=== PATIENT | female | born 1965 | race Caucasian/White ===

== ENCOUNTER 2020-10-24 12:05 | Outpatient (REF) | payer OTHER, SELFPAY ==
[2020-10-26 18:57] LABS: TS Negative Control Passed; TS Panel A 0; TS Panel B 0; TS Positive Control Passed; TSpotTB Negative (SeeBelow)
[2021-01-14 11:49] LABS: HCV Log PCR <1.18 NOT DETECTED; HepC Viral Load <15 NOT DETECTED
== END 2020-10-24 12:06 | disposition home or self-care (01) ==
LOC: HO.LAB 12:05
PROVIDERS: PCP Physician Assistant; Visit Provider Student in an Organized Health Care Education/Training Program
DX: M05.9 Rheumatoid arthritis with rheumatoid factor, unspecified (principal)
CPT/HCPCS: 36415; 86481; 87522

== ENCOUNTER → 2020-11-24 10:11 | Outpatient (BNVA) | payer OTHER, SELFPAY | PROVIDERS: PCP Physician Assistant; Visit Provider Internal Medicine Gastroenterology | DX: Z76.89 Persons encountering health services in other specified circumstances (principal) ==

== ENCOUNTER 2020-12-09 11:11 | Emergency (ER) | payer OTHER, SELFPAY ==
--- NOTE | 2020-12-09 | ECG_ITS ---
Test Reason : DIZZINESS Blood Pressure : / mmHG Vent. Rate : 044 BPM Atrial Rate : 044 BPM P-R Int : 132 ms QRS Dur : 090 ms QT Int : 486 ms P-R-T Axes : 082 -05 047 degrees QTc Int : 415 ms Marked sinus bradycardia Septal infarct , age undetermined Abnormal ECG When compared with ECG of 18-MAR-2013 00:34, No significant change was found Referred By: Generic ED Physician Electronically Signed By:Neel Perez
[2020-12-09 11:19] VITALS: BP 145/64; PULSE 42; RESP 20; TEMP 36.4; O2SAT 99; BMI 22.1
--- NOTE | 2020-12-09 12:30 | XR_ITS ---
EXAMINATION: XR CHEST CLINICAL INFORMATION: Weakness, dizziness, headaches. COMPARISON: None TECHNIQUE: 2 views of the chest were obtained. FINDINGS: No significant abnormality is noted involving the heart, lungs, mediastinum, bony thorax or soft tissues. XR/XR chest 2V IMPRESSION: No acute cardiopulmonary process.
--- NOTE | 2020-12-09 12:30 | CT_ITS ---
EXAMINATION: CT HEAD WITHOUT CONTRAST CLINICAL INFORMATION: Generalized weakness, dizziness, headache and bodyaches COMPARISON: None TECHNIQUE: Contiguous axial imaging was performed from the skull base to vertex without intravenous administration of contrast. This CT examination was performed using dose optimization techniques as appropriate, variously including the following: *Automated exposure control *Adjustment of mA and/or kV according to patient size (this includes techniques or standardized protocols for targeted exams where dose is matched to indication/reason for exam; i.e. extremities or head) *Use of iterative reconstruction technique DLP: 631 mGy-cm FINDINGS: There is no evidence of acute intracranial hemorrhage or territorial infarction. No abnormal mass effect or midline shift is seen. Mancuso to white matter differentiation is well preserved. No extra-axial fluid collections are identified. The ventricles are normal in size. There is no abnormal attenuation within the brain parenchyma. The osseous structures and soft tissues are normal. There are 2 small polyps or cysts in the left side of the sphenoid sinus. The mastoid air cells and visualized portions of the paranasal sinuses are otherwise clear. CT/CT head/brain wo con IMPRESSION: No acute findings. Small polyps or cysts in the left side of the sphenoid sinus.
--- NOTE | 2020-12-09 12:31 | CT_ITS ---
EXAMINATION: CT ABDOMEN AND PELVIS WITH CONTRAST CLINICAL INFORMATION: Nausea, vomiting and diarrhea and generalized abdominal pain COMPARISON: Previous CT of the abdomen and pelvis December 2012 TECHNIQUE: Multidetector volumetric images were obtained from the superior aspect of the liver through the pubic symphysis following administration 85 mL of Omnipaque 350 intravenous contrast. Sagittal and coronal reformatted images were obtained on the technologist's workstation. Oral contrast: Yes This CT examination was performed using dose optimization techniques as appropriate, variously including the following: *Automated exposure control *Adjustment of mA and/or kV according to patient size (this includes techniques or standardized protocols for targeted exams where dose is matched to indication/reason for exam; i.e. extremities or head) *Use of iterative reconstruction technique DLP: 377 mGy-cm FINDINGS: LUNG BASES: The visualized lung bases are unremarkable. LIVER, GALLBLADDER, AND BILIARY TREE: There are small calcifications seen in the liver that are stable. The gallbladder has been removed. There is mild intra and extrahepatic biliary duct dilatation. This is similar to 2013 exam. PANCREAS: Unremarkable. SPLEEN: Unremarkable. ADRENAL GLANDS: Unremarkable. KIDNEYS AND URETERS: The kidneys are normal in size, shape, and attenuation. No hydronephrosis, hydroureter, or calculi seen. No perinephric stranding. BLADDER: Unremarkable. GASTROINTESTINAL TRACT: There are postoperative changes from gastric bypass. There is fluid seen in the bypassed portion of the stomach. The small and large bowel are otherwise unremarkable. The appendix is unremarkable. ABDOMINAL WALL: No significant hernia is appreciated. LYMPH NODES: Normal. VASCULAR: Unremarkable. PELVIC VISCERA: The uterus appears to have been removed. No pelvic mass is seen. OSSEOUS STRUCTURES: There is mild anterior subluxation of L4 with respect L5. There are mild degenerative changes of the spine. CT/CT abdomen pelvis w con IMPRESSION: Postoperative change from gastric bypass. There is fluid in the bypassed portion of the stomach. Mild intrahepatic extrahepatic biliary duct dilatation post cholecystectomy. This is stable from 2013 exam.
[2020-12-09] MEDS: 0.9 % Sodium Chloride 1,000 ML 999 ML IVCONT ×2 (13:08→17:08)
[2020-12-09 13:23] LABS: MANUAL DIFF FLAG NO
[2020-12-09 13:24] LABS: Basophils Percent Auto 0.7 % (0-2); Eosinophils Absolute Auto 0.4 X10*3/uL (0.0-0.4); Eosinophils Percent Auto 6.6 % (0-4); Hematocrit 36.7 % (37-47); Hemoglobin 12.3 g/dl (12.0-16.0); Imm Gran Abs Auto 0.02 X10*3/uL (0.00-0.03); Imm Gran Pct Auto 0.3 % (0.0-0.4); Lymphocytes Absolute Auto 1.1 X10*3/uL (1.2-4.9); Lymphocytes Percent Auto 19.3 % (20-40); Mean Corpuscular HGB Conc 33.5 g/dl (31.0-35.0); Mean Corpuscular Hemoglobin 29.6 pg (27.0-33.0); Mean Corpuscular Volume 88.2 fL (80-98); Mean Platelet Volume 12.8 fL (9.4-12.3); Monocytes Absolute Auto 0.6 X10*3/uL (0.1-1.2); Monocytes Percent Auto 10.1 % (2-11); Neutrophils Absolute Auto 3.6 X10*3/uL (2.0-8.3); Platelet Count 123 X10*3/uL (160-400); Red Blood Count 4.16 X10*6/uL (4.20-5.50); Red Cell Distribution Width 16.3 % (11.0-16.0); White Blood Count 5.7 X10*3/uL (4.8-10.8)
[2020-12-09 13:35] LABS: INTERNATIONAL NORM RATIO 1.1 (0.9-1.1); Prothrombin Time 12.9 SEC (10.8-13.0)
[2020-12-09 13:38] LABS: Partial Thromboplastin Time 35.8 SEC (24.1-38.0)
[2020-12-09 13:56] LABS: Troponin-I High Sensitivity < 3.5 ng/L (<3.5-17.0)
[2020-12-09 13:58] LABS: Influenza A PCR NEGATIVE (Negative); Influenza B PCR NEGATIVE (Negative); Resp Syncy Virus RNA Qual PCR NEGATIVE (Negative); SARS COV2 PCR INHOUSE NEGATIVE (Negative)
[2020-12-09 14:19] VITALS: BP 155/54; PULSE 43; RESP 14; TEMP 36.6; O2SAT 99
--- NOTE | 2020-12-09 14:29 | ED.GENADULT ---
HPI - General Adult General Chief complaint: Dizziness Stated complaint: dizzy Time Seen by Provider: 12/09/20 12:19 Source: patient Mode of arrival: ambulatory Limitations: no limitations History of Present Illness HPI narrative: 55yoF c PMHx of Anemia of chronic blood loss, Lupus, seropositive rheumatoid arthritis taking Plaquenil, LISSA positive, limited scleroderma (CREST syndrome), Raynaud's syndrome, bipolar disorder, OCD and past surgical history of a gastric bypass presenting to the ED c c/o dizziness for the past few months, headache to the left temporal aspect of her head for over week that started gradually worse today with associated generalized weakness, body, N/V, generalized abdominal pain and feeling shortness of breath. Denies any recent travel or sick contacts. Denies head injury, recent tick bite, CO2 exposure, recent spinal/epidural procedure, changes in vision, jaw pain, chest pain, cough, back pain, extremity edema, focal weakness, dysuria, diarrhea or constipation or any other symptoms complaints or concerns at this time. Related Data Home Medications Medication Instructions Recorded Confirmed duloxetine 1 cap PO DAILY 10/28/20 11/24/20 fluticasone propion-salmeterol 1 inh INHALATION BID 10/28/20 11/24/20 [Wixela Inhub] tramadol 1 tab PO DAILY PRN 10/28/20 11/24/20 Previous Rx's Medication Instructions Recorded trimethobenzamide 300 mg capsule 300 mg PO Q6H PRN #7 cap 10/27/20 tofacitinib 11 mg tablet,extended 11 mg PO DAILY #30 tab 11/18/20 release 24 hr peg-electrolyte solution 420 gram 240 ml PO Q10M #4000 ml 11/24/20 oral solution bisacodyl 5 mg tablet,delayed 10 mg PO ONCE 1 Days #2 tab 11/27/20 release polyethylene glycol 3350 17 238 g PO ONCE 1 Days #238 g 11/27/20 gram/dose oral powder hydroxychloroquine 200 mg tablet 300 mg PO DAILY #45 tab 12/04/20 izkezbddrr-dmkuernucfmfx-zbvm 1 cap PO Q8H PRN #10 cap 12/09/20 [Fioricet] diphenhydramine HCl [Benadryl] 25 mg PO Q6H PRN #10 cap 12/09/20 metoclopramide HCl [Reglan] 5 mg PO DAILY #10 tab 12/09/20 Allergies Allergy/AdvReac Type Severity Reaction Status Date / Time ciprofloxacin [From CIPRO] Allergy Intermediate RASH Verified 11/24/20 10:12 Review of Systems Review of Systems: Constitutional : + Fatigue, + Malaise, No Fever, No Chills, No Night Sweats, No recent prior head injury ENT/Mouth : No Ear Pain, No Nasal Congestion, No Sinus Pain, No sore throat, No Rhinorrhea Eyes: No Eye Pain, No Swelling, No Redness, No Foreign Body, No Discharge, No Vision Changes Cardiovascular : + SOB, No Chest Pain, No Dyspnea on Exertion, No Orthopnea, No Palpitations Respiratory : No Cough, No Sputum, No Wheezing, No Dyspnea Gastrointestinal : + Nausea, + Vomiting, + Abdominal pain, No Diarrhea, No Constipation, No Hematochezia, No Melena Genitourinary : No Dysuria, No Urinary Frequency, No Urinary Incontinence, No Urgency, No Flank Pain Musculoskeletal : + joint pain, + Myalgias Skin : No lacerations Neuro : + Headache, + dizziness, No Numbness, No Paresthesias, No Loss of Consciousness, no altered mental status, Denies past medical history of HIV, recent trauma, coagulopathy, recent spinal/ epidural procedure, new medication, URI symptoms, close contacts with similar symptoms, tick bite, or known CO2 exposure. Yes all other systems are reviewed and are negative PMFSH Past Medical History Attestation statement: The following information was validated with the patient. Medical History LISSA positive History of dyspnea History of OCD (obsessive compulsive disorder) Hx of bipolar disorder Hx of Raynaud's syndrome Limited scleroderma Lupus Seropositive rheumatoid arthritis Surgical History Hx of endoscopy Hx of gastric bypass S/P debridement Family History Family History Father Hx of cardiac pacemaker Mother History of heart attack Social History Social History Alcohol intake: never Smoking Status: Light tobacco smoker Tobacco Type: Cigarette Cigarettes Per Day: 1 Use of substances other than those prescribed or required for medical reasons: No Advance Directives: No Advance Directives Information Provided: No Physical Exam Vital Signs: Vital Signs: Last Vital Signs Temp 97.9 F 12/09/20 14:19 Pulse 49 L 12/09/20 17:00 Resp 12 12/09/20 16:11 BP 120/66 12/09/20 17:00 Pulse Ox 100 12/09/20 16:11 Body Mass Index 22.1 Vital signs have been reviewed as normal and appeared to be correct. Blood pressure hypertensive. Heart rate bradycardic. Respiration rate normal. Temperature normal. Oxygen saturation normal. Appearance: Alert. Oriented X3. No acute distress. Head: Tenderness to palpation to left side of head/temporal aspect. No right-sided head tenderness. Otherwise Normal external exam. Normocephalic. Atraumatic. Able to rotate head bilaterally. Eyes: PERRLA. EOMI. No nystagmus noted. Conjunctiva and sclera normal. Eyelids normal. Corneal reflex normal. ENT: EAC normal. TM's Normal. Hearing normal. Pharynx normal. Uvula midline. tongue midline. Moist mucous membranes. No trismus noted. No drooling noted. No muffled voice noted. Neck: Normal inspection. Neck supple. FROM. No adenopathy. Thyroid Normal. No meningeal signs. No neck mass noted. CVS: Normal heart rate and rhythm. Heart sound normal. No murmurs noted. Pulses normal throughout. Respiratory: No respiratory distress. Painless inspiration. Breath sounds normal. No wheezes/rales/rhonchi noted. Chest nontender. No accessory muscle usage noted or decreased air movement noted. Abdomen: Soft and generalized tenderness throughout. Bowel sounds normal in all 4 quadrants. No distention noted. No organomegaly noted. No visible injury noted. Back: No CVA tenderness. Full range of motion noted. Skin: Skin warm and dry. Normal skin color. Normal skin turgor. No rashes/lesions/lacerations noted. Extremities: No lower extremity edema. No calf tenderness noted. Extremities exhibit normal range of motion. Extremities nontender. Able to shrug shoulders bilaterally and keep up against resistance. Neuro: Oriented X 3. No motor deficit. No sensory deficit. Reflexes normal. Moving all extremities. No focal motor deficits. Cranial nerves II-XI intact bilaterally. Facial strength normal. Normal cognition. Speech normal. Gait normal. Strength 5/5 throughout. No pronator drift. No tremor noted. No fasciculations noted. Muscle tone normal throughout. No asterixis noted. Banbfc-va-ndvm test normal. Heel to fishman test normal. No rigidity noted. NIHSS score 0. Course Course Course Narrative: 12:30PM - 55yoF c PMHx of Anemia of chronic blood loss, Lupus, sero positive rheumatoid arthritis taking Plaquenil, LISSA positive, limited scleroderma (CREST syndrome), Raynaud's syndrome, bipolar disorder, OCD and past surgical history of a gastric bypass presenting to the ED c c/o dizziness for the past few months, headache to the left temporal aspect of her head for over week that started gradually worse today with associated generalized weakness, body, N/V, generalized abdominal pain and feeling shortness of breath. - on exam patient is alert and oriented x3. Patient is noted to be tender on the left side of her head diffusely nonspecifically over the temporal artery. She is noted to be tender all over her body her abdomen and anywhere palpate. No focal neuro deficits noted. Patient has a normal steady gait. Generalized tenderness to palpation of the abdomen. - Plan: Labs, CXR, EKG, CT scan of brain, Ct scan of chest andf CT scan of abd/pelvis c IV contrast. Provide a L of IV fluids, 50 mg of IV Benadryl, 10 mg of Reglan and 2 Fioricet and re-evaluate. Reevaluation(s) Reevaluation #1: - All labs WNL. CXR WNL. EKG sinus bradycardia otherwise no acute ischemic changes noted and similar compared to prior EKG. - awaiting CT scan of brain/chest and abdomen pelvis to re-evaluate. Time: 15:29 Reevaluation #2: - CT scan of brain reveals small polyps or cyst in the left side of the sphenoid sinus. otherwise no other acute processes noted. - CTA of chest for PE negative for PE or any other acute processes. - CT scan of abd/pelvis c IV contrast revealed Postoperative changes from gastric bypass. There is fluid and the bypass portion of the stomach. Mild intrahepatic extrahepatic biliary duct dilatation post cholecystectomy. This is stable from 2013 exam. - Therefore I consulted with the patient's GI surgeon and I spoke to 1 of his on-call associates and they reported that occasionally the bypass portion of the stomach will still secretive fluid that as long as there is no fistula on CT scan and patient is not having moderate GI symptoms that finding is of no clinical significance at this time. - UA Within normal limits no evidence of UTI/UhCG negative for . - Orthostatic vitals negative although patient reports dizziness with laying down/sitting and standing up. Therefore will give another L of IV fluids and plan to discharge. Patient understands agrees the plan. Time: 16:37 Medical Decision Making Medical Records Medical records reviewed: Yes I reviewed the patient's medical records. Lab Data Lab results reviewed: Yes I reviewed the patient's lab results. Result diagrams: 12/09/20 13:04 12/09/20 14:33 Labs: Lab Results 12/09/20 12/09/20 12/09/20 Range/Units 13:04 13:04 13:04 WBC 5.7 (4.8-10.8) X10*3/uL RBC 4.16 L (4.20-5.50) X10*6/uL Hgb 12.3 (12.0-16.0) g/dl Hct 36.7 L (37-47) % MCV 88.2 (80-98) fL MCH 29.6 (27.0-33.0) pg MCHC 33.5 (31.0-35.0) g/dl RDW 16.3 H (11.0-16.0) % Plt Count 123 L (160-400) X10*3/uL MPV 12.8 H (9.4-12.3) fL Immature Gran % (Auto) 0.3 (0.0-0.4) % Neut % (Auto) 63.0 (45-73) % Lymph % (Auto) 19.3 L (20-40) % [place] % (Auto) 10.1 (2-11) % Eos % (Auto) 6.6 H (0-4) % Baso % (Auto) 0.7 (0-2) % Lymph # (Auto) 1.1 L (1.2-4.9) X10*3/uL [place] # (Auto) 0.6 (0.1-1.2) X10*3/uL Eos # (Auto) 0.4 (0.0-0.4) X10*3/uL Baso # (Auto) 0.0 (0.0-0.2) X10*3/uL Abs Immat Gran (auto) 0.02 (0.00-0.03) X10*3/uL Absolute Neuts (auto) 3.6 (2.0-8.3) X10*3/uL Absolute Nucleated RBC 0.000 (0.0-0.012) X10*3/uL Nucleated RBC % (auto) 0.0 (0.0-0.2) /100WBC ESR 16 (0-20) MM/HR PT 12.9 (10.8-13.0) SEC INR 1.1 (0.9-1.1) APTT 35.8 (24.1-38.0) SEC Sodium (135-145) mmol/L Potassium (3.3-5.1) mmol/l Chloride (96-108) mmol/L Carbon Dioxide (22-29) mmol/L Anion Gap (12-20) BUN (9-16) mg/dL Creatinine (0.5-1.4) mg/dL Estim Creat Clear Calc Estimated GFR Random Glucose (60-115) mg/dL Calcium (8.4-10.2) mg/dL Magnesium (1.6-2.6) mg/dL Total Bilirubin (0.0-1.0) mg/dL Direct Bilirubin (0.0-0.5) mg/dL AST (5-31) U/L ALT (0-31) U/L Alkaline Phosphatase (39-117) U/L Troponin I High Sens (<3.5-17.0) ng/L C-Reactive Protein (< or = 0.50) mg/dL Total Protein (6.5-8.0) g/dL Albumin (3.5-5.0) g/dL Urine Color Urine Appearance Urine pH (5.0-8.0) Ur Specific [place] (1.005-1.025) Urine Protein (NEG-TRACE) MG/DL Urine Glucose (UA) (NEG) MG/DL Urine Ketones (NEG) MG/DL Urine Blood (NEG) Urine Nitrite (NEG) Ur Leukocyte Esterase (NEG) Urine Test (NEGATIVE) Coronavirus (PCR) (Negative) Influenza Type A (PCR) (Negative) Influenza Type B (PCR) (Negative) RSV RNA Qual (PCR) (Negative) 12/09/20 12/09/20 12/09/20 Range/Units 13:04 13:04 14:33 WBC (4.8-10.8) X10*3/uL RBC (4.20-5.50) X10*6/uL Hgb (12.0-16.0) g/dl Hct (37-47) % MCV (80-98) fL MCH (27.0-33.0) pg MCHC (31.0-35.0) g/dl RDW (11.0-16.0) % Plt Count (160-400) X10*3/uL MPV (9.4-12.3) fL Immature Gran % (Auto) (0.0-0.4) % Neut % (Auto) (45-73) % Lymph % (Auto) (20-40) % [place] % (Auto) (2-11) % Eos % (Auto) (0-4) % Baso % (Auto) (0-2) % Lymph # (Auto) (1.2-4.9) X10*3/uL [place] # (Auto) (0.1-1.2) X10*3/uL Eos # (Auto) (0.0-0.4) X10*3/uL Baso # (Auto) (0.0-0.2) X10*3/uL Abs Immat Gran (auto) (0.00-0.03) X10*3/uL Absolute Neuts (auto) (2.0-8.3) X10*3/uL Absolute Nucleated RBC (0.0-0.012) X10*3/uL Nucleated RBC % (auto) (0.0-0.2) /100WBC ESR (0-20) MM/HR PT (10.8-13.0) SEC INR (0.9-1.1) APTT (24.1-38.0) SEC Sodium 142 (135-145) mmol/L Potassium 3.9 (3.3-5.1) mmol/l Chloride 110 H (96-108) mmol/L Carbon Dioxide 25 (22-29) mmol/L Anion Gap 11 L (12-20) BUN 8 L (9-16) mg/dL Creatinine 0.58 (0.5-1.4) mg/dL Estim Creat Clear Calc 92.7 Estimated GFR > 60 Random Glucose 82 (60-115) mg/dL Calcium 8.5 (8.4-10.2) mg/dL Magnesium 1.7 (1.6-2.6) mg/dL Total Bilirubin 0.3 (0.0-1.0) mg/dL Direct Bilirubin 0.2 (0.0-0.5) mg/dL AST 25 (5-31) U/L ALT 14 (0-31) U/L Alkaline Phosphatase 64 (39-117) U/L Troponin I High Sens < 3.5 (<3.5-17.0) ng/L C-Reactive Protein 0.03 (< or = 0.50) mg/dL Total Protein 6.5 (6.5-8.0) g/dL Albumin 3.8 (3.5-5.0) g/dL Urine Color Urine Appearance Urine pH (5.0-8.0) Ur Specific [place] (1.005-1.025) Urine Protein (NEG-TRACE) MG/DL Urine Glucose (UA) (NEG) MG/DL Urine Ketones (NEG) MG/DL Urine Blood (NEG) Urine Nitrite (NEG) Ur Leukocyte Esterase (NEG) Urine Test (NEGATIVE) Coronavirus (PCR) NEGATIVE (Negative) Influenza Type A (PCR) NEGATIVE (Negative) Influenza Type B (PCR) NEGATIVE (Negative) RSV RNA Qual (PCR) NEGATIVE (Negative) 12/09/20 Range/Units 16:33 WBC (4.8-10.8) X10*3/uL RBC (4.20-5.50) X10*6/uL Hgb (12.0-16.0) g/dl Hct (37-47) % MCV (80-98) fL MCH (27.0-33.0) pg MCHC (31.0-35.0) g/dl RDW (11.0-16.0) % Plt Count (160-400) X10*3/uL MPV (9.4-12.3) fL Immature Gran % (Auto) (0.0-0.4) % Neut % (Auto) (45-73) % Lymph % (Auto) (20-40) % [place] % (Auto) (2-11) % Eos % (Auto) (0-4) % Baso % (Auto) (0-2) % Lymph # (Auto) (1.2-4.9) X10*3/uL [place] # (Auto) (0.1-1.2) X10*3/uL Eos # (Auto) (0.0-0.4) X10*3/uL Baso # (Auto) (0.0-0.2) X10*3/uL Abs Immat Gran (auto) (0.00-0.03) X10*3/uL Absolute Neuts (auto) (2.0-8.3) X10*3/uL Absolute Nucleated RBC (0.0-0.012) X10*3/uL Nucleated RBC % (auto) (0.0-0.2) /100WBC ESR (0-20) MM/HR PT (10.8-13.0) SEC INR (0.9-1.1) APTT (24.1-38.0) SEC Sodium (135-145) mmol/L Potassium (3.3-5.1) mmol/l Chloride (96-108) mmol/L Carbon Dioxide (22-29) mmol/L Anion Gap (12-20) BUN (9-16) mg/dL Creatinine (0.5-1.4) mg/dL Estim Creat Clear Calc Estimated GFR Random Glucose (60-115) mg/dL Calcium (8.4-10.2) mg/dL Magnesium (1.6-2.6) mg/dL Total Bilirubin (0.0-1.0) mg/dL Direct Bilirubin (0.0-0.5) mg/dL AST (5-31) U/L ALT (0-31) U/L Alkaline Phosphatase (39-117) U/L Troponin I High Sens (<3.5-17.0) ng/L C-Reactive Protein (< or = 0.50) mg/dL Total Protein (6.5-8.0) g/dL Albumin (3.5-5.0) g/dL Urine Color YELLOW Urine Appearance CLEAR Urine pH 6.0 (5.0-8.0) Ur Specific [place] 1.010 (1.005-1.025) Urine Protein NEG (NEG-TRACE) MG/DL Urine Glucose (UA) NEG (NEG) MG/DL Urine Ketones NEG (NEG) MG/DL Urine Blood NEG (NEG) Urine Nitrite NEG (NEG) Ur Leukocyte Esterase NEG (NEG) Urine Test NEGATIVE (NEGATIVE) Coronavirus (PCR) (Negative) Influenza Type A (PCR) (Negative) Influenza Type B (PCR) (Negative) RSV RNA Qual (PCR) (Negative) Imaging Data Chest x-ray: Attestation: I personally reviewed and interpreted this imaging study as follows: Radiologist's impression: FINDINGS: No significant abnormality is noted involving the heart, lungs, mediastinum, bony thorax or soft tissues. XR/XR chest 2V IMPRESSION: No acute cardiopulmonary process. ECG Data Attestation: I personally reviewed and interpreted this ECG as follows: Interpretation: Sinus bradycardia with a ventricular rate of 44 with normal WI interval normal QRS duration normal QTC interval. No acute ischemic changes noted. Compared to prior EKG on 03/18/2013 Critical Care Time Critical Care Time Critical Care Time: Yes Total Critical Care Time: 60 Attestation: I personally attest to this time spent taking care of the patient Discharge Plan Discharge Clinical Impression: Dizziness, Bradycardia with 41-50 beats per minute, Polyp of sphenoid sinus, Headache, migraine, Acute viral syndrome Patient Disposition: Home, Self-Care Instructions: Migraine Headache (ED), Bradycardia (ED), Dizziness (ED), Nasal Polyps (ED) Additional Instructions: your noted to have fluid in the bypass portion of the stomach. I spoke to an associate of your gastric bypass surgeon and he reported this is no clinical significance at this time although if you start to have worsening symptoms he needs to follow up with him or return here. Return if any new or worsening symptoms. Continue your previously prescribed medications as previously prescribed. Prescriptions: New xnvgaguusw-vbebxlstyppqn-zmxh [Fioricet] 50-300-40 mg capsule 1 cap PO Q8H PRN (Reason: pain) Qty: 10 RF: 0 metoclopramide HCl [Reglan] 5 mg tablet 5 mg PO DAILY Qty: 10 RF: 0 diphenhydramine HCl [Benadryl] 25 mg capsule 25 mg PO Q6H PRN (Reason: nausea and vomiting or motion sickness) Qty: 10 RF: 0 No Action trimethobenzamide [Tigan] 300 mg capsule 300 mg PO Q6H PRN (Reason: nausea and vomiting) Qty: 7 RF: 0 Xeljanz XR 11 mg tablet extended release 24 hr 11 mg PO DAILY Qty: 30 RF: 3 bisacodyl [Dulcolax (bisacodyl)] 5 mg tablet,delayed release (DR/EC) 10 mg PO ONCE 1 Days Qty: 2 RF: 0 polyethylene glycol 3350 [Miralax] 17 gram/dose powder 238 g PO ONCE 1 Days Qty: 238 RF: 0 hydroxychloroquine 200 mg tablet 300 mg PO DAILY Qty: 45 RF: 4 fluticasone propion-salmeterol [Wixela Inhub] 250-50 mcg/dose Blister With Device 1 inh INHALATION BID RF: 0 tramadol 50 mg tablet 1 tab PO DAILY PRN (Reason: Pain) RF: 0 duloxetine 60 mg capsule,delayed release(DR/EC) 1 cap PO DAILY RF: 0 peg-electrolyte soln [TriLyte With Flavor Packets] 420 gram recon soln 240 ml PO Q10M Qty: 4000 RF: 0 Referrals: Ernst Richardson PA-C [Primary Care Provider] - 2 days Stand Alone Forms: Work/School Release Print Language: Maldivian
[2020-12-09 14:48] LABS: Erythrocyte Sedimentation Rate 16 MM/HR (0-20)
[2020-12-09 15:15] LABS: Alanine Aminotransferase 14 U/L (0-31); Albumin Level 3.8 g/dL (3.5-5.0); Alkaline Phosphatase 64 U/L (39-117); Anion Gap 11 (12-20); Aspartate Amino Transferase 25 U/L (5-31); Bilirubin Direct 0.2 mg/dL (0.0-0.5); Bilirubin Total 0.3 mg/dL (0.0-1.0); Blood Urea Nitrogen 8 mg/dL (9-16); C Reactive Protein 0.03 mg/dL (< or = 0.50); Calcium 8.5 mg/dL (8.4-10.2); Carbon Dioxide 25 mmol/L (22-29); Chloride 110 mmol/L (96-108); Creatinine Clr Calc Pharmacy 92.7; Estimated Glomerular Filt Rate > 60; Glucose Random 82 mg/dL (60-115); Magnesium 1.7 mg/dL (1.6-2.6); Potassium 3.9 mmol/l (3.3-5.1); Sodium 142 mmol/L (135-145); Total Protein 6.5 g/dL (6.5-8.0)
--- NOTE | 2020-12-09 15:16 | CT_ITS ---
EXAMINATION: CT ANGIOGRAM OF THE CHEST WITH AND WITHOUT CONTRAST (CT PULMONARY ANGIOGRAM FOR PE) CLINICAL INFORMATION: Reason for Exam pt c sob COMPARISON: Chest radiographs 12/09/2020, CT chest noncontrast 07/22/2020 TECHNIQUE: Prior to contrast administration, noncontrast localization images were obtained. Subsequently, multidetector volumetric imaging was performed from the thoracic inlet to below the diaphragms following the administration of 85 mL Omnipaque 350 intravenous contrast. Sagittal, coronal, and MIP oblique sagittal reformatted images were obtained on the CT workstation, uploaded to PACS, and reviewed. This CT examination was performed using dose optimization techniques as appropriate, variously including the following: *Automated exposure control *Adjustment of mA and/or kV according to patient size (this includes techniques or standardized protocols for targeted exams where dose is matched to indication/reason for exam; i.e. extremities or head) *Use of iterative reconstruction technique Total exam dose-length product 176 mGy-cm FINDINGS: QUALITY OF STUDY/CONTRAST BOLUS: Satisfactory. PULMONARY ARTERIES: No central or segmental pulmonary emboli. THORACIC AORTA: No aneurysm or dissection. LUNG: No pneumothorax, airspace consolidation, groundglass opacity. The central airways are clear. No endobronchial lesion or bronchiectasis. PLEURA: No pleural effusion or pneumothorax. MEDIASTINUM: Normal heart size. No pericardial effusion. No hilar or mediastinal lymphadenopathy. No evidence of septal bowing or right heart strain. CHEST WALL/AXILLA: No axillary or internal mammary lymphadenopathy. OSSEOUS STRUCTURES: No acute or suspicious osseous abnormality. UPPER ABDOMEN: There are surgical clips again seen upper abdomen and gallbladder fossa. No reflux of contrast into the hepatic veins to suggest elevated right heart pressures. CT/CT angio chest PE protocol IMPRESSION: 1. No pulmonary embolism or thoracic dissection. 2. No pneumothorax, airspace consolidation, or groundglass opacity. VTE: negative
[2020-12-09] MEDS: iohexoL 350 MG/ML 100 ML INFUS..BTL IV (15:49)
[2020-12-09] MEDS: Butalb/Acetamin/Caff 50/325/40 TABLET 2 TAB PO (16:06)
[2020-12-09] MEDS: Metoclopramide HCl 10 MG/2 ML VIAL IVPUSH (16:07)
[2020-12-09] MEDS: diphenhydrAMINE HCL 50 MG/ML VIAL IVPUSH (16:07)
[2020-12-09 16:11] VITALS: BP 128/108; PULSE 52; RESP 12; O2SAT 100
[2020-12-09 16:43] LABS: Glucose Urine UA NEG (NEG); Leukocyte Esterase Urine NEG (NEG); Nitrite Urine NEG (NEG); Urine Blood NEG (NEG); Urine Ketones NEG (NEG); Urine Protein NEG (NEG-TRACE)
[2020-12-09 16:46] LABS: Appearance Urine CLEAR; Color Urine YELLOW; UPreg QC Valid YES; Urine Pregnancy NEGATIVE (NEGATIVE)
[2020-12-09 16:59] VITALS: BP 128/58; PULSE 43
[2020-12-09 17:00] VITALS: BP 110/54; BP 120/66; PULSE 47; PULSE 49
[2020-12-09] MEDS: Meclizine HCl 25 MG TABLET 50 MG PO (18:02)
== END 2020-12-09 18:45 | disposition home or self-care (01) ==
PROVIDERS: Physician Assistant Medical; Emergency Provider Emergency Medicine; PCP Physician Assistant
DX: B34.9 Viral infection, unspecified (principal); Z20.822 Contact with and (suspected) exposure to COVID-19; R42 Dizziness and giddiness; J33.8 Other polyp of sinus; R00.1 Bradycardia, unspecified; R51.9 Headache, unspecified; F17.210 Nicotine dependence, cigarettes, uncomplicated
CPT/HCPCS: 0241U; 36415; 70450; 71046; 71275; 74177; 80048; 80076; 81003; 81025; 83735; 84484; 85025; 85610; 85652; 85730; 86140; 93005; 96361; 96374; 96375; 99284; 99291; J1200; J2765; Q9967

== ENCOUNTER 2021-06-01 13:52 | Emergency (ER) | payer OTHER, SELFPAY ==
[2021-06-01 14:30] VITALS: BP 145/60; PULSE 50; RESP 16; TEMP 37.1; O2SAT 97; BMI 20.5
== END 2021-06-01 16:46 | disposition left against medical advice (07) ==
PROVIDERS: Emergency Provider Emergency Medicine; PCP Physician Assistant
DX: R51.9 Headache, unspecified (principal)
CPT/HCPCS: 99281; 99282

== ENCOUNTER 2023-05-25 08:01 | Outpatient (AMB) | payer OTHER, SELFPAY ==
--- NOTE | 2023-05-25 08:24 | A.OFFPC_ITS ---
Vital Signs 05/25/23 08:27 Height 5 ft 3 in Weight 151 lb 8 oz BMI 26.8 BP 104/74 Blood Pressure Location Lt brachial Position Sitting Pulse 51 Pulse Source Pulse Oximeter Pulse Oximetry (%) 99 Oxygen Delivery Method Room Air Intake Visit Reasons: Physical exam Intake Note: Pt c/o: only concerns of caring for son also states she needs a letter for COVID 19 vaccination refusal [employer] Required: No Accompanied by: Self / Same As Patient Allergies ciprofloxacin [From CIPRO] Allergy (Intermediate, Verified 05/25/23 08:44) RASH Medication List - Last Reconciled 05/25/23 by Ernst Richardson PA-C trimethobenzamide 300 mg PO Q6H PRN Dental Screening Did you have a dental visit in the last 12 months?: Yes HPI Physical exam HPI Details Patient is a 57-year-old female here today for routine annual physical. PMHx of Anemia of chronic blood loss, Lupus, sero positive rheumatoid arthritis previously on Plaquenil, LISSA positive, limited scleroderma (CREST syndrome), Raynaud's syndrome, bipolar disorder, OCD and past surgical history of a gastric bypass. .. Autoimmune disease: Has a history of multiple arm you diseases including Raynaud syndrome, scleroderma, lupus. Does report daughter recently diagnosed with lupus. Was on Plaquenil , meloxicam, Cymbalta in the past for her joint related pains. Has not had establish care with a band cutting machine operator in some time. She would like to reestablish care with Rheumatology. Will restart Cymbalta due to her widespread pain. .. Bipolar disorder: Feels that she has been fairly stable, does have breakthrough mood swings at times though not severe. She is willing to restart Cymbalta as it has helped her with her mood in the past. Not interested in speak with mental health therapy or psychiatrist at this time. Now going to taoist and feels her spirituality is helping her mental health. Vaccines: Refuses COVID vaccine, up-to-date with pneumonia vaccine, needs tetanus vaccine. Colon cancer screening: willing to do cologuard Mammogram: needs up-to-date mammogram. 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 [facility] Medical History (Updated 05/25/23 @ 10:05 by Ernst Richardson PA-C) LISSA positive History of dyspnea History of OCD (obsessive compulsive disorder) Hx of bipolar disorder Hx of Raynaud's syndrome Limited scleroderma Lupus Seropositive rheumatoid arthritis Surgical History (Updated 05/25/23 @ 10:07 by Ernst Richardson PA-C) Hx of endoscopy Hx of gastric bypass S/P debridement Family History Father Hx of cardiac pacemaker Mother History of heart attack Social History (Updated 05/25/23 @ 08:54 by Ernst Richardson PA-C) Alcohol intake: never Patient Tobacco Use Status: Former Tobacco user Cigarettes Per Day: 0 Current occupational status: unemployed and disabled Questionnaire PHQ-9 Over the last 2 weeks, how often have you been bothered by any of the following problems? 1. Little interest or pleasure in doing things: several days 2. Feeling down, depressed, or hopeless: several days 3. Trouble falling or staying asleep, or sleeping too much: several days 4. Feeling tired or having little energy: several days 5. Poor appetite or overeating: not at all 6. Feeling bad about yourself - or that you are a failure or have let yourself or your family down: several days 7. Trouble concentrating on things, such as reading the newspaper or watching television: not at all 8. Moving or speaking so slowly that other people could have noticed. Or the opposite - being so fidgety or restless that you have been moving around a lot more than usual: not at all 9. Thoughts that you would be better off or of hurting yourself in some way: not at all Total score: 5 Depression Screening Interpretation: Positive 27157 - PHQ-9 Billing: Yes Source: Developed by Drs. Glenroy Escobar, Maggie Mckenzie, Carlos Jimenez and colleagues, with an educational viridiana from [employer]. Thrive Questionnaire What is your living situation today?: I have a steady place to live Within the past 12 months, did the food you bought not last and you didn't have the money to get more?: Never true Within the past 12 months, did you worry whether your food would run out before you got money to buy more?: Never true Do you have trouble paying for medicines?: No Do you have trouble getting transportation to medical appointments?: No Do you have trouble paying your heating and electricity bill?: No Do you have trouble taking care of your child, family member or friend?: Yes (son ) Do you have trouble with day-to-day activities such as bathing, preparing meals, shopping, managing finances, etc.?: No Are you currently unemployed and looking for a job?: I choose not to answer this question Are you interested in more education?: No AUDIT C Alcohol Use Questionnaire (AUDIT-C) 1. How often do you have a drink containing alcohol?: Never Total Score: 0 ZULAY-7 AMB Questionnaire ZULAY-7 Feeling nervous, anxious, or on edge: 1 = Several days Not being able to stop or control worryin = Several days Worrying too much about different things: 2 = More than half the days Trouble relaxin = Several days Being so restless that it is hard to sit still: 1 = Several days Becoming easily annoyed or irritable: 0 = Not at all Feeling afraid as if something awful might happen: 0 = Not at all Total ZULAY-7 score (0-4 normal; 5-9 mild; 10-14 moderate; 15-21 severe): 6 Source: Developed by Drs. Glenroy Escobar, Maggie Mckenzie, Carlos Jimenez and colleagues, with an educational viridiana from [employer]. ZULAY-7 Assessment Billing ZULAY-7 Assessment Tool: ZULAY-7 Assessment 39926 Review of Systems Const Denies body aches, Denies chills, Denies excessive sweating, Denies fatigue, Denies fever(s) and Denies headache(s) Eyes Denies blurry vision ENT Denies dysphagia, Denies vertigo, Denies dizziness, Denies headache(s), Denies hearing loss and Denies tinnitus Card Denies chest pain, Denies chest pain with activity, Denies syncope, Denies irregular heart rhythm and Denies dyspnea Resp Denies chest congestion, Denies cough, Denies hemoptysis, Denies dyspnea and Denies wheezing GI Denies abdominal pain, Denies melena, Denies hematochezia, Denies coffee ground emesis, Denies dysphagia, Denies diarrhea, Denies nausea and Denies vomiting Denies urinary frequency, Denies dysuria, Denies urinary hesitancy and Denies urinary urgency Musc Denies arthralgias, Denies limited range of motion, Denies muscle cramps and Denies muscle weakness Skin/Breast Denies rash and Denies skin ulcer Neuro Denies Abnormal speech present, Denies confusion, Denies vertigo, Denies dizziness, Denies syncope, Denies headache(s), Denies memory loss and Denies seizure-like activity Psych Denies anxiety, Denies confusion, Denies depression, Denies memory loss, Denies panic attacks and Denies paranoia Endo Denies excessive sweating, Denies fatigue, Denies flushing, Denies polydipsia and Denies polyuria Aller/Immun Denies wheezing Physical exam (Primary Care) Vital Signs: Last Vital Signs Pulse 51 05/25/23 08:27 BP 104/74 05/25/23 08:27 Pulse Ox 99 05/25/23 08:27 Oxygen Delivery Method Room Air 05/25/23 08:27 BMI result Body Mass Index 26.8 Tobacco/Smoking Status: Tobacco use Status Patient Tobacco Use Status Former Tobacco user 05/25/23 08:54 PHQ-9: PHQ-9 Score PHQ-9: Total score 5 05/25/23 09:16 Depression Screening Interpretation: Positive Const General: cooperative, comfortable, no acute distress, alert and awake; No confusion Orientation/consciousness: oriented to person, oriented to place, patient oriented x3 and No confusion HENMT Head: Yes normocephalic Ears: external ears normal and TM's normal bilaterally Face and sinus: No sinus tenderness Mouth: Normal oral and palatal mucosa present and tongue normal Teeth and gingiva: dentition normal and gingiva normal Throat: Yes posterior oropharynx normal, Yes tonsils normal and Yes uvula midline Eyes Conjunctivae: conjunctivae normal Sclerae: sclerae normal Pupils: Equal, round and reactive pupils present EOM: EOMs intact bilaterally Direct Ophthalmoscopy: No no photophobia Neck Neck: Yes no lymphadenopathy, No tender and Yes no JVD Thyroid: Thyroid normal Carotids: no bruits Chest Chest palpation & inspection: no tenderness Resp Effort & Inspection: normal respiratory effort, no audible wheezes, not labored and no stridor Auscultation: no crackles, no rales, no rhonchi and no wheezes Cardio Jugular venous distension: no JVD Rate: regular rate, not bradycardic and not tachycardic Rhythm: regular rhythm Bruits: no carotid bruits Peripheral pulses: Peripheral pulses 2+ throughout GI Inspection: Yes normal to inspection, No abdominal wall ecchymosis and No visible herniation Palpation (GI): Soft to palpation, nontender, no guarding, not rigid and No hepatosplenomegaly present Auscultation: normoactive bowel sounds General: Yes no CVA tenderness Back/Spine/Pelvis Back: no CVA tenderness and No back tenderness Cervical Spine: cervical ROM normal Thoracic/Lumbar Spine: thoracic and lumbar spine normal to inspection, straight leg raise negative bilaterally, No thoraco-lumbar ROM limited and No lumbar spinal tenderness Skin Lesions: no lesions Rashes: no rashes Wounds: no wounds Neuro General: oriented to person, oriented to place, patient oriented x3, CN's II-XI intact bilaterally and No confusion Cranial nerves: Yes Equal, round and reactive pupils present and Yes Normal accommodation reflex present Cognition (Neuro): normal cognition Speech: No Abnormal speech present Gait exam (Neuro): Normal gait present Motor exam (neuro): 5/5 motor strength present throughout Extrem Right upper extremity: full ROM; no cyanosis Left upper extremity: full ROM; no cyanosis Right lower extremity: no edema Left lower extremity: no edema Psych Appearance: grossly normal Mental Status: mental status grossly normal Affect: normal affect Attitude: cooperative Thought process: Normal thought process present Immunizations Boostrix Tdap Performing Provider: Ernst Richardson PA-C Administered by: Olga Roy CMA on 05/25/23 09:16 Dose Route Admin Location Lot Number Expiration Date [employer] 0.5 mL IM Left Deltoid [id number] 08/24/25 41587-067-01 [employer] VIS Given Date VIS Provided VIS Publication Date 05/25/23 Single Vaccine 21 Eligibility Eligibility Date Funding Source Not [facility] Eligible 05/25/23 Private Assessment and Plan Assessment & Plan (1) Annual physical exam: Code(s): Z00.00 - Encounter for general adult medical examination without abnormal findings (2) Seropositive rheumatoid arthritis: Comment: taking plaquenil Code(s): M05.9 - Rheumatoid arthritis with rheumatoid factor, unspecified Plan: Patient has a chronic history of autoimmune disease. Was seen by a band cutting machine operator many years ago. Was on Plaquenil for her autoimmune disease in the past. Still continues to report joint pains in bilateral ankles, knees ectt. Willing to restart Cymbalta for her global eyes Shadi. (3) Calcinosis, Raynaud's phenomenon, sclerodactyly, and telangiectasia (CREST) syndrome: Code(s): M34.1 - CR(E)ST syndrome Plan: Does have sequelae of autoimmune including crest syndrome. Again will try to set her up with Rheumatology for further evaluation and treatment. 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 She is willing to restart Cymbalta for both pain control and mood stabilization. Not interested in speaking with a mental health therapist or psychiatrist at this time. Again she has found spirituality to which she feels is helpful for her mental health. Orders: Orders Cyclic Citrullinated Peptide Today M32.9 - Systemic lupus erythematosus, unspecified Comprehensive [place]. Panel Fast Today Z13.1 - Encounter for screening for diabetes mellitus Rheumatoid Factor Today M32.9 - Systemic lupus erythematosus, unspecified Complete Blood Count no Diff Today Z13.1 - Encounter for screening for diabetes mellitus LISSA Reflex Titer and Pattern Today M32.9 - Systemic lupus erythematosus, unspecified Anti DNA DS Antibody Today M32.9 - Systemic lupus erythematosus, unspecified Erythrocyte Sedimentation Rate Today M32.9 - Systemic lupus erythematosus, unspecified MM screening mammo BI Today Z12.31 - Encounter for screening mammogram for malignant neoplasm of breast, Z12.39 - Encounter for other screening for malignant neoplasm of breast XR chest 2V Today Z11.1 - Encounter for screening for respiratory tuberculosis TDaP Immunization Today Z23 - Encounter for immunization Referrals Cologuard Test Z12.11 - Encounter for screening for malignant neoplasm of colon Rheumatology Referral M32.9 - Systemic lupus erythematosus, unspecified Medications: New duloxetine (Cymbalta) 30 mg PO DAILY 90 days 90 caps 1RF F31.12 - Bipolar disorder, current episode manic without psychotic features, moderate Coding Level of Care Code Est Pt Prev Care 40-64y(11071) Diagnoses Annual physical exam Z00.00 Seropositive rheumatoid arthritis M05.9 Calcinosis, Raynaud's phenomenon, sclerodactyly, and telangiectasia (CREST) syndrome M34.1 Colon cancer screening Z12.11 Breast cancer screening Z12.31 Breast cancer screening modality: mammogram Screening-pulmonary TB Z11.1 Screening for diabetes mellitus (DM) Z13.1 Bipolar 1 disorder with moderate otis F31.12 Additional Codes ZULAY-7 Assessment Billing - ZULAY-7 Assessment Tool: ZULAY-7 Assessment 44999 ([id number])
[2023-05-25 08:27] VITALS: BP 104/74; PULSE 51; O2SAT 99; BMI 26.8
== END 2023-05-25 09:19 | disposition home or self-care (01) ==
PROVIDERS: PCP Physician Assistant; Visit Provider Physician Assistant
DX: Z00.00 Encounter for general adult medical examination without abnormal findings (principal); M05.9 Rheumatoid arthritis with rheumatoid factor, unspecified; M34.1 CR(E)ST syndrome; Z12.11 Encounter for screening for malignant neoplasm of colon; Z12.31 Encounter for screening mammogram for malignant neoplasm of breast; Z11.1 Encounter for screening for respiratory tuberculosis; Z13.1 Encounter for screening for diabetes mellitus; F31.12 Bipolar disorder, current episode manic without psychotic features, moderate; Z23 Encounter for immunization
CPT/HCPCS: 90471; 90715; 99396

== ENCOUNTER 2023-05-25 09:33 | Outpatient (REF) | payer OTHER, SELFPAY ==
--- NOTE | ~2023-05-25 | XR_ITS ---
EXAMINATION: XR CHEST CLINICAL INFORMATION: Screening for respiratory tuberculosis. COMPARISON: CT chest 12/09/2020. TECHNIQUE: 2 views of the chest were obtained. FINDINGS: Normal appearance of the cardiomediastinal silhouette. No focal airspace opacity, pleural effusion or pneumothorax. Thoracic spondylosis. Mild degenerative osteoarthritis of the acromioclavicular joints. Right upper quadrant surgical clips. XR/XR chest 2V IMPRESSION: No acute cardiopulmonary findings. No radiographic evidence of active tuberculosis.
== END 2023-05-25 09:34 | disposition home or self-care (01) ==
LOC: HO.XRAY 09:33
PROVIDERS: Visit Provider Physician Assistant
DX: Z11.1 Encounter for screening for respiratory tuberculosis (principal)
CPT/HCPCS: 71046

== ENCOUNTER 2023-06-24 11:57 | Outpatient (REF) | payer OTHER, SELFPAY | END 2023-06-24 11:58 | disposition home or self-care (01) | LOC: HO.MAMMO 11:57 | PROVIDERS: PCP Physician Assistant; Visit Provider Physician Assistant | DX: Z12.31 Encounter for screening mammogram for malignant neoplasm of breast (principal) | CPT/HCPCS: 77063; 77067 ==

== ENCOUNTER → 2023-06-24 12:30 | Outpatient (BNV) | payer OTHER, SELFPAY | PROVIDERS: PCP Physician Assistant; Visit Provider Radiology Diagnostic Radiology | DX: Z12.31 Encounter for screening mammogram for malignant neoplasm of breast (principal) | CPT/HCPCS: 77063; 77067 ==

== ENCOUNTER 2023-08-25 10:47 | Outpatient (AMB) | payer OTHER, SELFPAY ==
--- NOTE | 2023-08-25 10:51 | MHC.OFFVIS ---
Intake Vital Signs 08/25/23 10:52 Height 5 ft 3 in Weight 156 lb 8.451 oz BMI 27.7 BP 118/74 Blood Pressure Location Rt brachial Position Sitting Pulse 66 Pulse Source Pulse Oximeter Temp 97.1 F Temp Source Skin Pulse Oximetry (%) 98 Intake Visit Reasons: SLE Intake Note: New pt presents today for SLE consult. Reports she was prescribed xeljanz in the past but never took it because of concerns with side effects. C/o pain in chest, low back, fingers, and feet. [employer] Project [employer] Required: No Accompanied by: Self / Same As Patient Allergies ciprofloxacin [From CIPRO] Allergy (Intermediate, Verified 08/25/23 10:57) RASH Medication List - Last Reconciled 08/25/23 by Ruth Helm MD duloxetine (Cymbalta) 30 mg PO DAILY 90 days HPI HPI Comments History of Present Illness Details This is a 57-year-old female with a past medical history of limited scleroderma/seropositive RA/SLE overlap who presents as a new patient for me. She was last evaluated by Dr. Camacho in 2019. Patient stated that she started having Raynaud's about 10 years ago. She has history of digital tip ulcers. She was diagnosed with SLE/scleroderma 5 years ago. She was on hydroxychloroquine for some time. She stated that she stopped it due to eye pain. She states however that she has been having eye pain chronically. She also mentions that she was prescribed Xeljanz but never took it out of fear of side effects. She does not recall who prescribed it. Patient is complaining of pain in her hands, feet, as well as the rest of her body. She she is also having chest wall pain that is worse with lying flat. She stated that she had surgery in her sternoclavicular joints in 2016. She denies any history of DVT/PE. She denies GERD. Denies any history of recent digital tip ulcer PFSH Medical History Lupus Hx of Raynaud's syndrome Hx of bipolar disorder History of OCD (obsessive compulsive disorder) History of dyspnea Limited scleroderma LISSA positive Seropositive rheumatoid arthritis Surgical History Hx of endoscopy S/P debridement Hx of gastric bypass Family History Father Hx of cardiac pacemaker Mother History of heart attack Sister Lupus (systemic lupus erythematosus) Daughter Lupus (systemic lupus erythematosus) Social History Alcohol intake: never Patient Tobacco Use Status: Former Tobacco user Cigarettes Per Day: 0 Current occupational status: unemployed and disabled Female Reproductive History Menstrual Total pregnancies: 4 Full term: 4 Review of Systems Const Reports fatigue and Reports weakness Eyes Reports blurry vision and Reports eye pain ENT Reports dry mouth and Reports tinnitus Card Reports chest pain and Reports dyspnea Resp Reports dyspnea Musc Reports arthralgias, Reports joint swelling and Reports stiffness Skin/Breast Reports rash Neuro Reports weakness Psych Reports anxiety and Reports depression Endo Reports fatigue and Reports polydipsia Physical Exam Vital Signs: Last Vital Signs Temp 97.1 F 08/25/23 10:52 Pulse 66 08/25/23 10:52 BP 118/74 08/25/23 10:52 Pulse Ox 98 08/25/23 10:52 BMI result Body Mass Index 27.7 Const General: cooperative, healthy appearing and comfortable Nutritional Appearance: overweight Orientation/consciousness: patient oriented x3 Limitations: no limitations HEENT Head: Yes normocephalic and Yes atraumatic Mouth: moist mucous membranes Resp Effort & Inspection: normal respiratory effort and able to speak in complete sentences Auscultation: clear to auscultation bilaterally Cardio Rate: regular rate Rhythm: regular rhythm GI Inspection: No distended Palpation (GI): Soft to palpation and nontender Skin Other: Multiple telangiectasias Neuro General: patient oriented x3 Extrem Other: Bilateral lower wrist tenderness without swelling , warmth or erythema No active synovitis otherwise Negative MCPs squeeze test bilaterally No swollen joints Numerous fibromyalgia tender points Negative MTP squeeze test bilaterally Right groin pain with flexion adduction and external rotation Normal nailfold capillaroscopy Assessment & Plan Assessment & Plan (1) Limited scleroderma: Comment: + telangiectasia, + Raynaud's, +++ centromere antibody +RF++CCP Code(s): M34.9 - Systemic sclerosis, unspecified Plan: This is a 57-year-old female with a past medical history of limited scleroderma overlapping with seropositive RA and some features of SLE who presents as a new patient for me. Previously patient was on hydroxychloroquine. Today patient is complaining of diffuse pain. There are no swollen joints on exam. Multiple fibromyalgia tender points Previously patient was on hydroxychloroquine but she discontinued it due to eye pain and blurry vision. She has eye pain and blurry vision chronically despite discontinuing it. Advised patient to follow-up with ophthalmology. She is also complaining of chest wall pain. Check x-rays of involved joints Raynaud's has been well controlled. She has normal nailfold capillaroscopy and no digital ulcers. Check labs to evaluate disease activity. Order a 2D echo to evaluate for pulmonary artery hypertension/evaluate for pericarditis. Check PFTs to screen for ILD Follow-up in 1 months Plan I spent 47 minutes reviewing patient's chart, evaluating patient, ordering diagnostic workup, counseling patient and documenting in the chart Orders: Orders Comprehensive Met. Panel Today M32.9 - Systemic lupus erythematosus, unspecified C Reactive Protein Today M32.9 - Systemic lupus erythematosus, unspecified T Spot TB Today Z11.7 - Encounter for testing for latent tuberculosis infection Immunofixation Pnl, Serum Today M32.9 - Systemic lupus erythematosus, unspecified Anti DNA DS Antibody Today M32.9 - Systemic lupus erythematosus, unspecified DNA Double Stranded-Crithidia Today M32.9 - Systemic lupus erythematosus, unspecified XR hip RT min 2V Today M05.9 - Rheumatoid arthritis with rheumatoid factor, unspecified XR shoulder RT min 2V Today M05.9 - Rheumatoid arthritis with rheumatoid factor, unspecified CA echo transthoracic complete Today R07.9 - Chest pain, unspecified Complete Blood Count Auto Diff Today M32.9 - Systemic lupus erythematosus, unspecified Erythrocyte Sedimentation Rate Today M32.9 - Systemic lupus erythematosus, unspecified Hepatitis A,B,C Profile Today Z11.59 - Encounter for screening for other viral diseases Protein Electrophoresis, Serum Today M32.9 - Systemic lupus erythematosus, unspecified Complement C3 Today M32.9 - Systemic lupus erythematosus, unspecified Complement C4 Today M32.9 - Systemic lupus erythematosus, unspecified XR hand wrist LT Today M05.9 - Rheumatoid arthritis with rheumatoid factor, unspecified XR hand wrist RT Today M05.9 - Rheumatoid arthritis with rheumatoid factor, unspecified XR hip LT min 2V Today M05.9 - Rheumatoid arthritis with rheumatoid factor, unspecified XR shoulder LT min 2V Today M05.9 - Rheumatoid arthritis with rheumatoid factor, unspecified PFT pulmonary function test Today R06.02 - Shortness of breath Coding Level of Care Code New Pt Level 4 (62728) Diagnoses Limited scleroderma M34.9
[2023-08-25 10:52] VITALS: BP 118/74; PULSE 66; TEMP 36.2; O2SAT 98; BMI 27.7
== END 2023-08-25 13:00 | disposition home or self-care (01) ==
PROVIDERS: PCP Physician Assistant; Visit Provider Student in an Organized Health Care Education/Training Program
DX: M34.9 Systemic sclerosis, unspecified (principal)
CPT/HCPCS: 99204

== ENCOUNTER 2023-08-25 10:47 | Outpatient (REF) | payer OTHER, SELFPAY ==
--- NOTE | ~2023-08-25 | XR_ITS ---
EXAMINATION: XR SHOULDER, RIGHT CLINICAL INFORMATION: Rheumatoid arthritis. COMPARISON: Radiographs dated 02/27/2017. TECHNIQUE: AP external rotation, Grashey, scapular Y, and axillary views of the right shoulder. FINDINGS: Bony alignment and mineralization are normal. The glenohumeral joint is intact. The acromioclavicular interval is normal, and there is moderate osteoarthritic change of the acromioclavicular joint. The coracoclavicular interval is widened to 1.5 cm, unchanged from 02/27/2017. No acute fracture or spondylolisthesis is seen. There is exuberant cortical irregularity of the greater tuberosity of the proximal right humerus. No bone erosion is seen. There is no soft tissue calcification or foreign body. No right pneumothorax is seen. XR/XR shoulder LT min 2V IMPRESSION: 1. 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 2. There is moderate osteoarthritic change of the right acromioclavicular joint. 3. Findings are consistent with right rotator cuff impingement. 4. No acute fracture or spondylolisthesis is seen. 5. There is no abnormal bone erosion. EXAMINATION: XR SHOULDER, LEFT CLINICAL INFORMATION: Rheumatoid arthritis. COMPARISON: None available. TECHNIQUE: AP external rotation, Grashey, scapular Y, and axillary views of the left shoulder. FINDINGS: Bony alignment and mineralization are normal. The glenohumeral joint is intact. The acromion process is offset relative to the distal clavicle by 4 mm, with periarticular calcifications. The coracoclavicular interval is widened to 1.5 cm. No acute fracture or dislocation is seen. There is a distal acromial undersurface osteophyte, and there is cortical irregularity of the greater tuberosity of the proximal left humerus. There is no abnormal bone erosion. No soft tissue calcification or foreign body is seen. There is no left pneumothorax. IMPRESSION: 1. Findings are consistent with mild acromioclavicular and coracoclavicular separation injuries, possibly chronic. Please correlate clinically. 2. No acute fracture or dislocation is seen. 3. There is no abnormal bone erosion. 4. Findings suggest possible left rotator cuff impingement.
--- NOTE | ~2023-08-25 | XR_ITS ---
EXAMINATION: XR HIP, RIGHT XR HIP, LEFT CLINICAL INFORMATION: Rheumatoid arthritis. COMPARISON: AP pelvis dated 05/25/2018. TECHNIQUE: AP and frog-leg lateral views of the right hip. AP and frog-leg lateral views of the left hip. FINDINGS: Bony alignment and mineralization are normal. The acetabular joint spaces are well-maintained. There is slight subchondral sclerosis and irregularity of the right acetabular roof. There is minimal subchondral sclerosis of the left acetabular roof. The femoral heads are smooth. There is no fracture or dislocation. No abnormal bone erosion is seen. The sacroiliac joints are symmetric and well-maintained. The pubic symphysis is intact. Pelvic phleboliths are noted. There is no foreign body. XR/XR hip RT min 2V IMPRESSION: There is very mild osteoarthritic change of the right hip, and negligible osteoarthritic change is seen of the left hip. No fracture or dislocation is seen. There is no abnormal bony erosive change.
--- NOTE | ~2023-08-25 | XR_ITS ---
EXAMINATION: XR HIP, RIGHT XR HIP, LEFT CLINICAL INFORMATION: Rheumatoid arthritis. COMPARISON: AP pelvis dated 05/25/2018. TECHNIQUE: AP and frog-leg lateral views of the right hip. AP and frog-leg lateral views of the left hip. FINDINGS: Bony alignment and mineralization are normal. The acetabular joint spaces are well-maintained. There is slight subchondral sclerosis and irregularity of the right acetabular roof. There is minimal subchondral sclerosis of the left acetabular roof. The femoral heads are smooth. There is no fracture or dislocation. No abnormal bone erosion is seen. The sacroiliac joints are symmetric and well-maintained. The pubic symphysis is intact. Pelvic phleboliths are noted. There is no foreign body. XR/XR hip LT min 2V IMPRESSION: There is very mild osteoarthritic change of the right hip, and negligible osteoarthritic change is seen of the left hip. No fracture or dislocation is seen. There is no abnormal bony erosive change.
--- NOTE | ~2023-08-25 | XR_ITS ---
EXAMINATION: XR HAND/WRIST, RIGHT XR HAND/WRIST, LEFT CLINICAL INFORMATION: Rheumatoid arthritis. COMPARISON: Radiographs dated 03/14/2020. TECHNIQUE: PA, lateral, and oblique views of the each hand and wrist. FINDINGS: RIGHT HAND/WRIST: The bones and soft tissues are normal. No fracture. Alignment is anatomic. Joint spaces are maintained. No erosions or soft tissue calcifications. LEFT HAND/WRIST: The bones and soft tissues are normal. No fracture. Alignment is anatomic. Joint spaces are maintained. No erosions or soft tissue calcifications. XR/XR hand wrist LT IMPRESSION: Normal radiographs of the hands and wrists.
--- NOTE | ~2023-08-25 | XR_ITS ---
EXAMINATION: XR HAND/WRIST, RIGHT XR HAND/WRIST, LEFT CLINICAL INFORMATION: Rheumatoid arthritis. COMPARISON: Radiographs dated 03/14/2020. TECHNIQUE: PA, lateral, and oblique views of the each hand and wrist. FINDINGS: RIGHT HAND/WRIST: The bones and soft tissues are normal. No fracture. Alignment is anatomic. Joint spaces are maintained. No erosions or soft tissue calcifications. LEFT HAND/WRIST: The bones and soft tissues are normal. No fracture. Alignment is anatomic. Joint spaces are maintained. No erosions or soft tissue calcifications. XR/XR hand wrist RT IMPRESSION: Normal radiographs of the hands and wrists.
== END 2023-08-25 10:48 | disposition home or self-care (01) ==
LOC: HO.XRAY 10:47
PROVIDERS: PCP Physician Assistant; Visit Provider Student in an Organized Health Care Education/Training Program
DX: M05.9 Rheumatoid arthritis with rheumatoid factor, unspecified (principal); M32.9 Systemic lupus erythematosus, unspecified; M34.9 Systemic sclerosis, unspecified; R07.9 Chest pain, unspecified; R06.02 Shortness of breath; Z11.59 Encounter for screening for other viral diseases
CPT/HCPCS: 73030; 73110; 73130; 73502

== ENCOUNTER 2023-08-25 11:41 | Outpatient (REF) | payer OTHER, SELFPAY ==
[2023-08-25 13:14] LABS: MANUAL DIFF FLAG NO
[2023-08-25 13:27] LABS: Basophils Absolute Auto 0.1 X10*3/uL (0.0-0.2); Basophils Percent Auto 0.8 % (0-2); Eosinophils Absolute Auto 0.7 X10*3/uL (0.0-0.4); Eosinophils Percent Auto 9.8 % (0-4); Hematocrit 31.6 % (37.0-47.0); Hemoglobin 9.9 g/dl (12.0-16.0); Imm Gran Abs Auto 0.02 X10*3/uL (0.00-0.03); Imm Gran Pct Auto 0.3 % (0.0-0.4); Lymphocytes Absolute Auto 1.9 X10*3/uL (1.2-4.9); Lymphocytes Percent Auto 27.1 % (20-40); Mean Corpuscular HGB Conc 31.3 g/dl (31.0-35.0); Mean Corpuscular Hemoglobin 23.8 pg (27.0-33.0); Mean Platelet Volume 11.9 fL (9.4-12.3); Monocytes Absolute Auto 0.6 X10*3/uL (0.1-1.2); Neutrophils Absolute Auto 3.8 x10*3/uL (2.0-8.3); Platelet Count 167 X10*3/uL (160-400); Red Blood Count 4.16 X10*6/uL (4.20-5.50); Red Cell Distribution Width 17.2 % (11.0-16.0); White Blood Count 7.1 X10*3/uL (4.8-10.8)
[2023-08-25 14:01] LABS: Erythrocyte Sedimentation Rate 53 MM/HR (0-20)
[2023-08-25 14:10] LABS: Alanine Aminotransferase 42 U/L (0-31); Alkaline Phosphatase 110 U/L (39-117); Anion Gap 13 (12-20); Aspartate Amino Transferase 65 U/L (5-31); Bilirubin Total 0.4 mg/dL (0.0-1.0); Blood Urea Nitrogen 8 mg/dL (9-16); C Reactive Protein 0.13 mg/dL (< or = 0.50); Calcium 9.5 mg/dL (8.4-10.2); Carbon Dioxide 26 mmol/L (22-29); Chloride 107 mmol/L (96-108); Estimated Glomerular Filt Rate > 60; Glucose Random 94 mg/dL (60-115); Sodium 142 mmol/L (135-145); Total Protein 8.3 g/dL (6.5-8.0)
[2023-08-25 17:13] LABS: Iron 43 mcg/dL (30-160); Percent Iron Saturation 11 % (15-50); Total Iron Binding Capacity 386 mcg/dL (228-428); Unsaturated Iron Binding 343 ug/dL
[2023-08-25 17:26] LABS: Ferritin 9 ng/mL (10-250)
[2023-08-26 04:11] LABS: HBS Num1 0.32 mIU/mL (0-7.99); HBc Num1 0.12 S/CO (0.00-0.79); HBsAGNum1 0.47 S/CO (0.00-0.99); Hepatitis A Antibody IgM 0.15 Index (0-0.79); Hepatitis B Core Antibody Nonreactive (Nonreactive); Hepatitis B Surface Antigen Negative (Negative); ~HepC Num1 6.19 S/CO (0.00-0.79); ~Hepatitis A Antibody IgM Nonreactive (Nonreactive); ~Hepatitis B Surface Antibody NONREACTIVE (Nonreactive); ~Hepatitis C Antibody Reactive (Nonreactive)
[2023-08-27 19:43] LABS: TS Negative Control Passed; TS Panel A 0; TS Panel B 0; TS Positive Control Passed; TSpotTB Negative (Negative)
[2023-08-29 11:44] LABS: Prot Elec - Alpha1 0.3 g/dL (0.2-0.3); Prot Elec - Alpha2 0.9 g/dL (0.5-0.9); Prot Elec - Beta 1 0.5 g/dL (0.4-0.6); Prot Elec - Beta 2 0.5 g/dL (0.2-0.5); Prot Elec - Gamma 1.7 g/dL (0.8-1.7); Prot Elec - Total Protein 7.9 g/dL (6.1-8.1)
[2023-08-29 15:08] LABS: Transferrin 363 mg/dL (188-341)
[2023-08-29 20:09] LABS: Anti DNA DS Antibody 2 IU/mL
[2023-08-29 22:37] LABS: Complement C3 126 mg/dL (83-193)
[2023-08-30 12:14] LABS: IgA 454 mg/dL (47-310); IgG 1829 mg/dL (600-1640); IgM 222 mg/dL (50-300)
[2023-08-30 22:44] LABS: Liver Kidney Microsomal Ab <=20.0 U (<=20.0)
[2023-08-31 08:29] LABS: DNAds, Crithidia Antibody Positive (Negative)
[2023-09-01 12:12] LABS: Smooth Muscle Antibody 75 U (<20)
== END 2023-08-25 11:42 | disposition home or self-care (01) ==
LOC: HO.10HDL 11:41
PROVIDERS: Visit Provider Student in an Organized Health Care Education/Training Program
DX: M05.9 Rheumatoid arthritis with rheumatoid factor, unspecified (principal); M32.9 Systemic lupus erythematosus, unspecified; R07.9 Chest pain, unspecified; R74.01 Elevation of levels of liver transaminase levels; D64.9 Anemia, unspecified; Z11.7 Encounter for testing for latent tuberculosis infection
CPT/HCPCS: 36415; 80053; 82728; 82784; 83540; 84165; 84466; 85025; 85652; 86015; 86140; 86160; 86225; 86255; 86334; 86376; 86481; 86704; 86706; 86709; 86803; 87340

== ENCOUNTER 2023-08-25 16:43 | Outpatient (REF) | payer OTHER, SELFPAY | END 2023-08-25 16:44 | disposition home or self-care (01) | LOC: HO.LAB 16:43 | PROVIDERS: Visit Provider Student in an Organized Health Care Education/Training Program | DX: Z13.89 Encounter for screening for other disorder (principal) ==

== ENCOUNTER 2023-09-28 09:28 | Outpatient (AMB) | payer OTHER, SELFPAY ==
[2023-09-28 09:39] VITALS: BP 140/68; PULSE 43; O2SAT 97; BMI 28.1
--- NOTE | 2023-09-28 09:39 | A.OFFPC_ITS ---
Vital Signs 3 09/28/23 09:39 Height 5 ft 3 in Weight 158 lb 8 oz BMI 28.1 BP 140/68 H Blood Pressure Location Lt brachial Position Sitting Pulse 43 L Pulse Source Pulse Oximeter Pulse Oximetry (%) 97 Oxygen Delivery Method Room Air Intake Visit Reasons: Follow-up lupus [employer] System Administrator Required: No Accompanied by: Self / Same As Patient Allergies ciprofloxacin [From [facility]] Allergy (Intermediate, Verified 09/28/23 11:00) RASH Medication List - Last Reconciled 09/28/23 by Ernst Richardson PA-C No Known Home Meds Tobacco use date assessed: 09/28/23 Dental Screening Dental Screen Date: 09/28/23 Did you have a dental visit in the last 12 months?: Yes Did you have a dental problem in the last 6 months where you did not have access to dental care?: No Was dental information given to patient?: Patient has dentist HPI Follow-up lupus 2 HPI0 Details Patient is a 58-year-old female here today for a follow-up visit. PMHx of Anemia of chronic blood loss, Lupus, sero positive rheumatoid arthritis previously on Plaquenil, LISSA positive, limited scleroderma (CREST syndrome), Raynaud's syndrome, bipolar disorder, OCD and past surgical history of a gastric bypass. .. Autoimmune disease: She has reestablish care with a cmo & president and has underwent testing. Does has positive markers including double-stranded DNA. Has a history of multiple autoimmune diseases including Raynaud syndrome, scleroderma, lupus. Does report daughter recently diagnosed with lupus. Was on Plaquenil , meloxicam, Cymbalta in the past for her joint related pains. She reports Cymbalta has started not to be effective. She is willing to try different medication for her pain. .. Bipolar disorder: Feels that she has been fairly stable, does have breakthrough mood swings at times though not severe. Now going to jew and feels her spirituality is helping her mental health. Laboratory Tests 08/25/23 08/25/23 08/25/23 11:50 11:50 16:51 IgG Total 1829 H IgA Total 454 H Anti-ds DNA Titer (Crith) 1:80 H Anti-Smooth Muscle Ab 75 H PFSH Medical History Lupus Hx of Raynaud's syndrome Hx of bipolar disorder History of OCD (obsessive compulsive disorder) History of dyspnea Limited scleroderma LISSA positive Seropositive rheumatoid arthritis Surgical History Hx of endoscopy S/P debridement Hx of gastric bypass Family History Father Hx of cardiac pacemaker Mother History of heart attack Sister Lupus (systemic lupus erythematosus) Daughter Lupus (systemic lupus erythematosus) Social History Housing: Apartment Alcohol intake: never Patient Tobacco Use Status: Former Tobacco user Tobacco use type: Cigarette Cigarettes Per Day: 0 e-Cigarette/Vaping Use: Never Used service: No Current occupational status: unemployed and disabled Cognitive needs: No Hearing needs: No Vision needs: No Review of Systems Const Denies headache(s) Eyes Denies loss of vision ENT Denies vertigo, Denies dizziness, Denies headache(s) and Denies sore throat Card Denies chest pain, Denies leg edema and Denies lightheadedness Resp Denies cough, Denies hemoptysis and Denies wheezing GI Denies abdominal pain, Denies melena, Denies constipation, Denies diarrhea and Denies vomiting Denies urinary frequency, Denies dysuria and Denies urinary urgency Musc Denies arthralgias, Denies joint swelling, Denies numbness and Denies tingling Neuro Denies Abnormal speech present, Denies behavioral changes, Denies vertigo, Denies dizziness, Denies headache(s), Denies loss of vision, Denies memory loss, Denies numbness and Denies tingling Psych Denies anxiety, Denies behavioral changes, Denies depression, Denies memory loss and Denies panic attacks Bossman/Lymph Denies easy bleeding and Denies easy bruising Aller/Immun Denies wheezing Physical exam (Primary Care) Vital Signs: Last Vital Signs Pulse 43 L 09/28/23 09:39 BP 140/68 H 09/28/23 09:39 Pulse Ox 97 09/28/23 09:39 Oxygen Delivery Method Room Air 09/28/23 09:39 BMI result Body Mass Index 28.1 Tobacco/Smoking Status: Tobacco use Status Tobacco use date assessed 09/28/23 09/28/23 10:29 Patient Tobacco Use Status Former Tobacco user 09/28/23 09:40 Tobacco use type Cigarette 09/28/23 10:29 e-Cigarette/Vaping Use Never Used 09/28/23 10:29 Const General: healthy appearing, no acute distress, alert and awake Nutritional Appearance: well nourished Orientation/consciousness: oriented to person, oriented to place and oriented to time HENMT Ears: TM's normal bilaterally General nose exam: Normal nasal mucous membranes and turbinates present Eyes Conjunctivae: conjunctivae normal Sclerae: sclerae normal Pupils: Equal, round and reactive pupils present Neck Neck: Yes no lymphadenopathy and Yes no JVD Thyroid: Thyroid normal Carotids: no bruits Resp Effort & Inspection: normal respiratory effort and not tachypneic Auscultation: no crackles, no rales, no rhonchi and no wheezes Cardio Rate: regular rate Rhythm: regular rhythm Heart sounds: no murmurs and normal S1 and S2 GI Palpation (GI): Soft to palpation, nontender, no hepatomegaly and no splenomegaly Auscultation: normal bowel sounds Skin General skin exam: no rashes or lesions noted and dry skin Neuro General: oriented to person, oriented to place and oriented to time Cranial nerves: Yes Equal, round and reactive pupils present Speech: No Abnormal speech present Gait exam (Neuro): Normal gait present Motor exam (neuro): no tremor noted Extrem Right upper extremity: full ROM Left upper extremity: full ROM Shoulder/upper arm images: 2 1. FULLNESS NOTED OVER THE PROXIMAL UPPER EXTREMITY. TENDERNESS TO PALPATION IN THIS AREA OUTLINED. Right lower extremity: full ROM; no edema Left lower extremity: full ROM; no edema Psych Mental Status: mental status grossly normal Speech and movement: Normal speech and movement present Affect: normal affect Attitude: cooperative Thought process: Normal thought process present Assessment and Plan Assessment & Plan (1) Seropositive rheumatoid arthritis: Code(s): M05.9 - Rheumatoid arthritis with rheumatoid factor, unspecified Plan: Has stopped using Plaquenil due to fears of making her vision worse. She will follow up with Rheumatology (2) Lupus: Code(s): M32.9 - Systemic lupus erythematosus, unspecified (3) Lipoma of arm: Code(s): D17.20 - Benign lipomatous neoplasm of skin and subcutaneous tissue of unspecified limb Qualifiers: Laterality: left Qualified Code(s): D17. - Benign lipomatous neoplasm of skin and subcutaneous tissue of left arm Plan: Will get ultrasound of the area of concern to evaluate for lipoma (4) Limited scleroderma: Comment: + telangiectasia, + Raynaud's, +++ centromere antibody +RF++CCP Code(s): M34.9 - Systemic sclerosis, unspecified Plan: Now followed by Rheumatology. Does have positive autoimmune markers for lupus. She was on Cymbalta though felt it was not effective anymore. She would like to try a different medication. Will start her on baclofen and Tylenol. (5) Blurred vision, bilateral: Code(s): H53.8 - Other visual disturbances Plan: Will try to reestablish care with [facility] due to her blurred vision. (6) Tear of left biceps muscle: Code(s): S46.212A - Strain of muscle, fascia and tendon of other parts of biceps, left arm, initial encounter Qualifiers: Encounter type: initial encounter Qualified Code(s): S46.212A - Strain of muscle, fascia and tendon of other parts of biceps, left arm, initial encounter Plan: As per physical exam finding. Has have a large lump palpable over the proximal upper left extremity. Somewhat concerning for a biceps tear. Will get MRI of left shoulder for evaluation. Orders: Orders 2 US extremity nonvascular 09/28/23 D17. - Benign lipomatous neoplasm of skin and subcutaneous tissue of left arm MR shoulder LT wo con 09/28/23 S46.212A - Strain of muscle, fascia and tendon of other parts of biceps, left arm, initial encounter Referrals 2 Ophthalmology Referral H53.8 - Other visual disturbances Medications: New 2 baclofen 10 mg PO DAILY 30 days 30 tabs 3RF M05.9 - Rheumatoid arthritis with rheumatoid factor, unspecified acetaminophen ER (Tylenol Arthritis Pain) 650 mg PO Q12H 30 days 60 tabs 3RF M05.9 - Rheumatoid arthritis with rheumatoid factor, unspecified, M19.90 - Unspecified osteoarthritis, unspecified site Coding Level of Care Code Est Pt Level 4 (89673) Diagnoses Seropositive rheumatoid arthritis M05.9 Lupus M32.9 Lipoma of left upper extremity D106.04 Laterality: left Limited scleroderma M34.9 Blurred vision, bilateral H53.8 Tear of left biceps muscle, initial encounter S46.212A Encounter type: initial encounter
== END 2023-09-28 11:26 | disposition home or self-care (01) ==
PROVIDERS: PCP Physician Assistant; Visit Provider Physician Assistant
DX: M05.9 Rheumatoid arthritis with rheumatoid factor, unspecified (principal); M32.9 Systemic lupus erythematosus, unspecified; M34.9 Systemic sclerosis, unspecified; D17.22 Benign lipomatous neoplasm of skin and subcutaneous tissue of left arm; H53.8 Other visual disturbances; S46.212A Strain of muscle, fascia and tendon of other parts of biceps, left arm, initial encounter; Z98.84 Bariatric surgery status
CPT/HCPCS: 99214

== ENCOUNTER 2023-10-10 14:48 | Outpatient (REF) | payer OTHER, SELFPAY ==
--- NOTE | 2023-10-10 14:50 | CA_ITS ---
Transthoracic Echocardiogram Patient (Last, First, Middle): Ciarra Ahuja N Gender: Female Date of : 1965 Age: 58 Procedure Date: 10/10/2023 Procedure Type: Transthoracic Echocardiogram Location: OP Height: 160.02 cm Weight: 71.67 kg BSA: 1.75 m2 Heart Rate: bpm BP: 130 / 84 mmHg Guest Relations Agent: MATTHEW Referring MD: Ruth Helm MD Seasonal Clerk: Maximo Forrester MD Symptoms: R07.9 - Chest pain, unspecified Study Quality: Adequate ECG Rhythm: Sinus Conclusions: - 1. Normal LV ejection fraction with impaired relaxation filling pattern 2. Normal cardiac valvular Doppler 3. Normal RV systolic pressure 4. No gross pericardial effusion Findings Left Ventricle Normal left ventricular size, thickness, and systolic function. The visually estimated ejection fraction is between 60-65%. Spectral Doppler is indicative of an impaired relaxation filling pattern. Peak GLS is -19.8%, within normal limits. Right Ventricle Normal right ventricular cavity size and systolic function. Atria The left atrium is likely dilated. There is no evidence of interatrial shunt. The right atrium is normal in size. Aortic Valve The aortic valve structure and function is likely normal. There is no aortic valve stenosis. There is no aortic valve regurgitation. Mitral Valve Normal mitral valve structure and function. There is trace mitral valve regurgitation. There is no mitral valve stenosis. Pulmonic Valve The pulmonic valve is likely normal. Tricuspid Valve Normal tricuspid valve structure. There is trace tricuspid valve regurgitation. The right ventricular systolic pressure is not calculated. The right ventricular systolic pressure is 24 mmHg. Normal right atrial pressure. There is no evidence of pulmonary hypertension. Great Vessels All visible segments of the aorta are normal in size. The pulmonary artery was not well visualized. Venous The inferior vena cava is normal in size and collapses greater than 50% with inspiration. Pericardium/Pleural There is no evidence of pericardial effusion. Measurements 2D Linear Measurements IVSd: 0.75 0.6-0.9/0.6-1.0 cm LVIDd: 5.02 3.9-5.3/4.2-5.9 cm LVIDd Index: 2.87 2.4-3.2/2.2-3.1 cm/m2 LVIDs: 2.69 2.0-3.6 cm LVPWd: 0.89 0.7-1.1 cm LA Diam: 4.00 2.7-3.8/3.0-4.0 cm LAIDs Index: 2.29 1.5-2.3 cm/m2 LV Mass: 176.21 67-162/88-224 g LV Mass Index: 100.69 43-95/49-115 g/m2 LVOT Diam: 2.10 3.0+(-)1.3 cm 2D Systolic Function EF 4C: 57.60 >55% EF 2C: 74.60 >55% EF BiP: 65.40 >55% Mitral Valve MV Pk E: 0.82 MV PK A: 0.78 MV Decel Time: 220.00 E/A: 1.00 E'Lateral: 10.30 E'Medial: 7.18 E/E' Med: 11.50 E/E' Lat: 8.00 PHT: 64.00 MVA PHT: 3.44 Decel [place]: 3.74 Aortic Valve AoV Pk Benjamin: 1.84 AoV Mn Benjamin: 1.14 AoV VTI: 0.41 AoV Pk Grad: 14.00 Aov Mn Grad: 6.00 JERI Cont.VTI: 2.49 LVOT LVOT Pk Benjamin: 1.28 LVOT Mn Benjamin: 0.80 LVOT VTI: 0.30 LVOT Pk Grad: 7.00 LVOT Mn Grad: 3.00 LVOT Diam: 2.10 LVOT Area: 3.46 Diastolic Function MV Pk E: 0.82 MV Pk A: 0.78 E/A: 1.00 E'Medial: 7.18 E/E' Med: 11.50 E' Laterial: 10.30 E/E' Lat: 8.00 Right Ventricle TAPSE (mm): 30.10 TVS' Benjamin: 14.40 Tricuspid Valve TR Pk Benjamin: 2.27 TR Pk Grad: 21.00 RA Press: 3.00 RVSP: 24.00 Great Vessels Aorta Sinus of Valsalva: 2.79 2.0-3.[address] [place]: 2.38 1.7-3.4 cm Ao Asc: 3.30 2.1-3.4 cm Ao Arch: 2.80 Updated in Other Vendor System with Status of Final Maximo Forrester MD electronically signed on 10/10/2023 4:54:52 PM with status of Final
== END 2023-10-10 14:49 | disposition home or self-care (01) ==
LOC: HO.RESP 14:48
PROVIDERS: PCP Physician Assistant; Visit Provider Student in an Organized Health Care Education/Training Program
DX: R07.9 Chest pain, unspecified (principal); R06.02 Shortness of breath
CPT/HCPCS: 93306; 93356

== ENCOUNTER → 2023-10-10 14:50 | Outpatient (BNV) | payer OTHER, SELFPAY | PROVIDERS: PCP Physician Assistant; Visit Provider Internal Medicine Cardiovascular Disease | DX: R07.9 Chest pain, unspecified (principal) | CPT/HCPCS: 93306 ==

== ENCOUNTER 2023-10-26 13:53 | Outpatient (REF) | payer OTHER, SELFPAY ==
--- NOTE | ~2023-10-26 | US_ITS ---
EXAMINATION: US extremity nonvascular CLINICAL INFORMATION: Benign lipomatous neoplasm of the skin COMPARISON: None TECHNIQUE: Sonographic evaluation of the left upper arm was performed. FINDINGS: No sonographic correlate to the area of concern. No soft tissue mass. No lymphadenopathy. No organized fluid collection. US/US extremity nonvascular IMPRESSION: No sonographic correlate to the area of concern.
== END 2023-10-26 13:54 | disposition home or self-care (01) ==
LOC: HO.US 13:53
PROVIDERS: PCP Physician Assistant; Visit Provider Physician Assistant
DX: D17.22 Benign lipomatous neoplasm of skin and subcutaneous tissue of left arm (principal)
CPT/HCPCS: 76882

== ENCOUNTER 2023-11-04 11:49 | Outpatient (AMB) | payer OTHER, SELFPAY ==
--- NOTE | 2023-11-04 11:50 | A.OFFVIS_ITS ---
Intake Vital Signs 11/04/23 11:52 Height 5 ft 3 in Weight 162 lb 11.218 oz BMI 28.8 BP 130/90 H Blood Pressure Location Lt brachial Position Sitting Pulse 50 Pulse Source Pulse Oximeter Temp 97 F Temp Source Skin Pulse Oximetry (%) 100 Oxygen Delivery Method Room Air Intake Visit Reasons: CREST Intake Note: Pt last seen 08/25/23 presents today for follow up and test results. Allergies ciprofloxacin [From CIPRO] Allergy (Intermediate, Verified 09/28/23 11:00) RASH Medication List - Last Reconciled 11/04/23 by Ruth Helm MD acetaminophen ER (Tylenol Arthritis Pain) 650 mg PO Q12H 30 days baclofen 10 mg PO DAILY 30 days HPI CREST HPI Details Pt last seen 08/25/23 presents today for follow up and test results. HPI Comments History of Present Illness Details Patient presents for follow-up after completion of her diagnostic workup. She states that she continues to have these veins on her body. She continues to have intermittent joint pain and stiffness of different joints including her hands, wrists, fingers. Initial history: This is a 57-year-old female with a past medical history of limited scleroderma/seropositive RA/SLE overlap who presents as a new patient for me. She was last evaluated by Dr. Camacho in 2019. Patient stated that she started having Raynaud's about 10 years ago. She has history of digital tip ulcers. She was diagnosed with SLE/scleroderma 5 years ago. She was on hydroxychloroquine for some time. She stated that she stopped it due to eye pain. She states however that she has been having eye pain chronically. She also mentions that she was prescribed Xeljanz but never took it out of fear of side effects. She does not recall who prescribed it. Patient is complaining of pain in her hands, feet, as well as the rest of her body. She she is also having chest wall pain that is worse with lying flat. She stated that she had surgery in her sternoclavicular joints in 2016. She denies any history of DVT/PE. She denies GERD. Denies any history of recent digital tip ulcer [facility]LY [facility], [facility] Medical History (Updated 11/04/23 @ 12:58 by Ruth Helm MD) Lupus Hx of Raynaud's syndrome Hx of bipolar disorder History of OCD (obsessive compulsive disorder) History of dyspnea Limited scleroderma LISSA positive Seropositive rheumatoid arthritis Surgical History Hx of endoscopy S/P debridement Hx of gastric bypass Family History Father Hx of cardiac pacemaker Mother History of heart attack Sister Lupus (systemic lupus erythematosus) Daughter Lupus (systemic lupus erythematosus) Social History Housing: Apartment Alcohol intake: never Patient Tobacco Use Status: Former Tobacco user Tobacco use type: Cigarette Cigarettes Per Day: 0 e-Cigarette/Vaping Use: Never Used service: No Current occupational status: unemployed and disabled Cognitive needs: No Hearing needs: No Vision needs: No Review of Systems Const Reports fatigue and Reports weakness Eyes Reports blurry vision and Reports eye pain ENT Reports dry mouth Card Reports dyspnea Resp Reports dyspnea Musc Reports arthralgias, Reports joint swelling and Reports stiffness Skin/Breast Reports rash Neuro Reports weakness Endo Reports fatigue Physical Exam Vital Signs: Last Vital Signs Temp 97 F 11/04/23 11:52 Pulse 50 11/04/23 11:52 BP 130/90 H 11/04/23 11:52 Pulse Ox 100 11/04/23 11:52 Oxygen Delivery Method Room Air 11/04/23 11:52 BMI result Body Mass Index 28.8 Const General: cooperative, healthy appearing and comfortable Nutritional Appearance: overweight Orientation/consciousness: patient oriented x3 Limitations: no limitations HEENT Head: Yes normocephalic and Yes atraumatic Mouth: moist mucous membranes Resp Effort & Inspection: normal respiratory effort and able to speak in complete sentences Auscultation: clear to auscultation bilaterally Cardio Rate: regular rate Rhythm: regular rhythm GI Inspection: No distended Palpation (GI): Soft to palpation and nontender Skin Other: Multiple telangiectasias Neuro General: patient oriented x3 Extrem Other: Bilateral wrist tenderness without swelling , warmth or erythema Negative MCPs squeeze test bilaterally No swollen joints Numerous fibromyalgia tender points Negative MTP squeeze test bilaterally Right groin pain with flexion adduction and external rotation Normal nailfold capillaroscopy Assessment & Plan Assessment & Plan (1) Limited scleroderma: Comment: + telangiectasia, + Raynaud's, +++ centromere antibody +RF++CCP Code(s): M34.9 - Systemic sclerosis, unspecified Plan: This is a 57-year-old female with a past medical history of limited scleroderma overlapping with seropositive RA who presents for follow-up after completion of her diagnostic workup. Patient has no swollen joints on exam. However she continues to have some arthralgias. Explained to patient that we can start her on hydroxychloroquine, patient was on hydroxychloroquine in the past. She states however that she has had chronic blurry vision and eye pain, she is worried about hydroxychloroquine. Will refer patient to Ophthalmology 1st. Raynaud's has been well controlled. She has normal nailfold capillaroscopy and no digital ulcers. 2D echo was unremarkable, no signs of pulmonary arterial hypertension. PFTs were not performed. Will discuss PFTs next visit. Follow-up in 6 months (2) Iron deficiency anemia: Code(s): D50.9 - Iron deficiency anemia, unspecified Qualifiers: Iron deficiency anemia type: chronic blood loss Qualified Code(s): D50.0 - Iron deficiency anemia secondary to blood loss (chronic) Plan: Labs consistent with iron deficiency anemia. Unclear cause, however given significant telangiectasias and patient's history of limited scleroderma she might have GAVE. Will refer patient to GI Follow-up with PCP (3) Transaminitis: Code(s): R74.01 - Elevation of levels of liver transaminase levels Plan: Chronic transaminitis with positive anti smooth muscle antibody. Referred patient to Gastroenterology Plan I spent 47 minutes reviewing patient's chart, evaluating patient, placing orders, counseling patient and documenting in the chart Orders: Referrals Ophthalmology Referral [id number] - Other long-term (current) drug therapy Gastroenterology Referral D50.9 - Iron deficiency anemia, unspecified, R74.01 - Elevation of levels of liver transaminase levels Coding Level of Care Code Est Pt Level 5 (82936) Diagnoses Limited scleroderma M34.9 Iron deficiency anemia due to chronic blood loss D50.0 Iron deficiency anemia type: chronic blood loss Transaminitis R74.01
[2023-11-04 11:52] VITALS: BP 130/90; PULSE 50; TEMP 36.1; O2SAT 100; BMI 28.8
== END 2023-11-04 12:24 | disposition home or self-care (01) ==
PROVIDERS: PCP Physician Assistant; Visit Provider Student in an Organized Health Care Education/Training Program
DX: M34.9 Systemic sclerosis, unspecified (principal); D50.0 Iron deficiency anemia secondary to blood loss (chronic); R74.01 Elevation of levels of liver transaminase levels; M34.1 CR(E)ST syndrome
CPT/HCPCS: 99215

== ENCOUNTER → 2023-11-04 11:49 | Outpatient (BNVA) | payer OTHER, SELFPAY | PROVIDERS: PCP Physician Assistant; Visit Provider Student in an Organized Health Care Education/Training Program | DX: M34.9 Systemic sclerosis, unspecified (principal); D50.0 Iron deficiency anemia secondary to blood loss (chronic); R74.01 Elevation of levels of liver transaminase levels | CPT/HCPCS: 99212 ==

== ENCOUNTER 2023-11-23 10:58 | Outpatient (REF) | payer OTHER, SELFPAY ==
--- NOTE | ~2023-11-23 | MR_ITS ---
EXAMINATION: MR SHOULDER WITHOUT CONTRAST, LEFT CLINICAL INFORMATION: Left shoulder pain for 2 years, difficulty lifting left arm COMPARISON: Left shoulder x-rays on 08/25/2023 TECHNIQUE: MRI of the shoulder without contrast was performed on a high-field scanner. FINDINGS: ROTATOR CUFF: The Left supraspinatus tendon shows extensive delaminated tear, measuring 1.4 cm in medial to lateral length, 1.5 cm in anterior to posterior width. The infraspinatus tendon is intact. There is trace left subacromial effusion. LABRUM: The glenoid labrum is unremarkable. A sublabral foramen is seen from 1-3 o'clock. TENDONS: The biceps anchor and extraarticular portion of the biceps tendon are intact. The subscapularis muscle and tendon attachment are normal. ACROMIOCLAVICULAR JOINT: The acromioclavicular joint is intact. There is mild joint effusion. Prominent sharp inferior left acromial osteophyte is seen. BONES: The acromion process shows normal flat anterior end without impingement. No focal bone lesions with abnormal signal can be seen. CARTILAGE: Articular cartilage of the humeral head and glenoid fossa are intact. MR/MR shoulder LT wo con IMPRESSION: 1. The Left supraspinatus tendon shows extensive delaminated tear. 2. There is trace left subacromial effusion. 3. Left acromioclavicular joint osteoarthritis and sharp inferior left acromial osteophyte are present.
== END 2023-11-23 10:59 | disposition home or self-care (01) ==
LOC: HO.MRI 10:58
PROVIDERS: PCP Physician Assistant; Visit Provider Physician Assistant
DX: S46.212A Strain of muscle, fascia and tendon of other parts of biceps, left arm, initial encounter (principal)
CPT/HCPCS: 73221

== ENCOUNTER 2024-02-02 19:54 | Emergency (ER) | payer OTHER, SELFPAY ==
[2024-02-02 20:18] VITALS: BP 132/45; PULSE 55; RESP 16; TEMP 36.8; O2SAT 100; BMI 28.3
--- NOTE | 2024-02-02 20:22 | ED.GENADULT ---
HPI - General Adult General Chief complaint: General Medical Stated complaint: left side of head swollen x1 month Time Seen by Provider: 02/02/24 22:20 Source: patient Mode of arrival: ambulatory History of Present Illness HPI narrative: 58-year-old female who presents with 1 month of left jaw pain that is worse in the morning, patient states that she has difficulty with movement of the left jaw, denies any tooth pain/fevers/chills/visual changes/ear pain. No history of report of rashes Related Data Previous Rx's Medication Instructions Recorded acetaminophen 650 mg 650 mg PO Q12H 30 days #60 tabs 09/28/23 tablet,extended release (Tylenol Arthritis Pain) baclofen 10 mg tablet 10 mg PO DAILY 30 days #30 tabs 09/28/23 Allergies Allergy/AdvReac Type Severity Reaction Status Date / Time ciprofloxacin [From CIPRO] Allergy Intermediate RASH Verified 02/02/24 20:18 Review of Systems Review of Systems: Pertinent positives and negatives as stated in HPI [facility] Past Medical History Source: nursing notes reviewed Medical History Lupus Hx of Raynaud's syndrome Hx of bipolar disorder History of OCD (obsessive compulsive disorder) History of dyspnea Limited scleroderma LISSA positive Seropositive rheumatoid arthritis Surgical History Hx of endoscopy S/P debridement Hx of gastric bypass Family History Family History Father Hx of cardiac pacemaker Mother History of heart attack Sister Lupus (systemic lupus erythematosus) Daughter Lupus (systemic lupus erythematosus) Social History Social History Housing: Apartment Alcohol intake: never Patient Tobacco Use Status: Former Tobacco user Tobacco use type: Cigarette Cigarettes Per Day: 0 e-Cigarette/Vaping Use: Never Used Advance Directives: No Advance Directives Information Provided: No service: No Current occupational status: unemployed and disabled Cognitive needs: No Hearing needs: No Vision needs: No Physical Exam ED Vital Signs: Vital Signs - 24 hr 02/02/24 20:18 02/02/24 21:21 Temperature 98.2 F 98 F Pulse Rate 55 53 Respiratory Rate 16 19 Blood Pressure 132/45 L 149/69 H Pulse Oximetry 100 100 Oxygen Delivery Method Room Air Room Air BMI result Body Mass Index 28.3 VITAL SIGNS: Reviewed. GENERAL: Well developed, well nourished, in no acute distress. HEAD: Normocephalic/atraumatic EYES: PERRLA, EOMI EARS: Ext canals without abnormality, TMs non-bulging and non-erythematous NOSE: Nares patent bilateral OROPHARYNX: no oral lesions noted, posterior pharynx clear and non-erythematous without noted tonsillar enlargement/erythema/exudates, multiple dental caries, no trismus, no swelling noted at the angle of the jaw, no vesicular rash noted to the left side of the face or to the intra buccal mucosa called no gingival swelling or erythema noted NECK: Supple, no adenopathy LUNGS: Normal breath sounds. No adventitious sounds or accessory muscle use. SpO2<100> CARDIOVASCULAR: Regular rate and rhythm without noted murmurs ABDOMEN: Soft, non-tender, non-distended with bowel sounds. MUSCULOSKELETAL: No tenderness, deformities, or effusions noted on gross inspection. EXTREMITIES: No cyanosis, clubbing or edema. SKIN: Inspection of the skin reveals no rashes NEUROLOGIC: Alert and oriented x 4. Strength and sensation to light touch were grossly intact x 4. Course Course Course Narrative: This is an RME: Additional HPI, ROS, PE not included below will be deferred to primary provider. 58-year-old female presents with left hindu pain for the past month. Not improving. Intermittent in nature. OTCs do not help. She reports at times he notices swelling. She reports today she decided come in as she was having difficulty sleeping. Will order labs ESR and CRP. Medical Decision Making Medical Decision Making MDM Narrative: 58-year-old female with history and clinical presentation, DDX: Nighttime teeth grinding given the fact that patient states she wakes up in the morning with the pain and then it resolves throughout the day, there are no clinical symptoms/evidence to suggests parotiditis/ sialadenitis/dental abscess/posterior pharynx infection/AOM. I reviewed all investigations and hematologic indices are negative for leukocytosis, there is a chronically stable thrombocytopenia as well as a chronically stable microcytic anemia. ESR-38 ESR is chronically elevated but does not raise suspicion for giant cell arteritis. Chemistry indices are negative for RAMILA or electrolyte derangements, there is a chronic elevation of transaminases and elevation of the alkaline phosphatase, however there is no abdominal discomfort for or symptoms to suggest an occult cholecystitis or pancreatitis. Patient was provided with combination analgesics and my interpretation is that she may have a component of TMJ/nighttime teeth grinding and was strongly encouraged to follow-up with a dentist Differential Diagnosis Differential Diagnoses: The differential diagnosis associated with the presentation includes Please see the discussion above Admission/Observation Consideration of admission/observation: Escalation of care including admission/observation considered Please see the discussion above Lab Data MDM Lab Attestation statement: I reviewed the patient's lab results. Please see the discussion above 02/02/24 20:29 02/02/24 20:29 Labs: Lab Results 02/02/24 Range/Units 20:29 WBC 5.5 (4.8-10.8) X10*3/uL RBC 4.14 L (4.20-5.50) X10*6/uL Hgb 9.6 L (12.0-16.0) g/dl Hct 30.2 L (37.0-47.0) % MCV 72.9 L (80.0-98.0) fL MCH 23.2 L (27.0-33.0) pg MCHC 31.8 (31.0-35.0) g/dl RDW 18.1 H (11.0-16.0) % Plt Count 142 L (160-400) X10*3/uL MPV Not Reportable Immature Gran % (Auto) 0.2 (0.0-0.4) % Neut % (Auto) 47.3 (45-73) % Lymph % (Auto) 35.4 (20-40) % [place] % (Auto) 10.5 (2-11) % Eos % (Auto) 6.1 H (0-4) % Baso % (Auto) 0.5 (0-2) % Lymph # (Auto) 2.0 (1.2-4.9) X10*3/uL [place] # (Auto) 0.6 (0.1-1.2) X10*3/uL Eos # (Auto) 0.3 (0.0-0.4) X10*3/uL Baso # (Auto) 0.0 (0.0-0.2) X10*3/uL Abs Immat Gran (auto) 0.01 (0.00-0.03) X10*3/uL Absolute Neuts (auto) 2.6 (2.0-8.3) x10*3/uL Absolute Nucleated RBC 0.000 (0.0-0.012) X10*3/uL Nucleated RBC % (auto) 0.0 (0.0-0.2) /100WBC ESR 38 H (0-20) MM/HR Sodium 142 (135-145) mmol/L Potassium 4.3 (3.3-5.1) mmol/L Chloride 108 (96-108) mmol/L Carbon Dioxide 24 (22-29) mmol/L Anion Gap 14 (12-20) BUN 11 (9-16) mg/dL Creatinine 0.65 (0.5-1.4) mg/dL Estim Creat Clear Calc 92.2 Estimated GFR > 60 Random Glucose 104 (60-115) mg/dL Calcium 9.3 (8.4-10.2) mg/dL Total Bilirubin 0.3 (0.0-1.0) mg/dL AST 140 H (5-31) U/L ALT 112 H (0-31) U/L Alkaline Phosphatase 144 H (39-117) U/L C-Reactive Protein 0.19 (< or = 0.50) mg/dL Total Protein 8.3 H (6.5-8.0) g/dL Albumin 3.7 (3.5-5.0) g/dL External Record Review External record reviewed: Outpatient record, Prior outpatient labs and Prior outpatient radiology Critical Care Time Critical Care Time Critical Care Time: Yes Total Critical Care Time: 30 Attestation: I personally attest to this time spent taking care of the patient. Discharge Plan Discharge Clinical Impression: Jaw pain, TMJ arthralgia, Grinding of teeth Patient Disposition: Home, Self-Care Instructions: Temporomandibular Disorder (ED) Additional Instructions: 1. Recommend [id number] Tylenol as well as the use of heat packs for symptom relief. 2. I strongly recommend following up with your primary care doctor as well as a dentist for further evaluation regarding TMJ. Return to the ER for any worsening symptoms Prescriptions: No Action acetaminophen [Tylenol Arthritis Pain] 650 mg tablet extended release 650 mg PO Q12H 30 Days Qty: 60 3RF baclofen 10 mg tablet 10 mg PO DAILY 30 Days Qty: 30 3RF
[2024-02-02 20:35] LABS: MANUAL DIFF FLAG NO
[2024-02-02 20:38] LABS: Basophils Percent Auto 0.5 % (0-2); Eosinophils Absolute Auto 0.3 X10*3/uL (0.0-0.4); Eosinophils Percent Auto 6.1 % (0-4); Hematocrit 30.2 % (37.0-47.0); Hemoglobin 9.6 g/dl (12.0-16.0); Imm Gran Abs Auto 0.01 X10*3/uL (0.00-0.03); Imm Gran Pct Auto 0.2 % (0.0-0.4); Lymphocytes Percent Auto 35.4 % (20-40); Mean Corpuscular HGB Conc 31.8 g/dl (31.0-35.0); Mean Corpuscular Hemoglobin 23.2 pg (27.0-33.0); Mean Corpuscular Volume 72.9 fL (80.0-98.0); Monocytes Absolute Auto 0.6 X10*3/uL (0.1-1.2); Monocytes Percent Auto 10.5 % (2-11); Neutrophils Absolute Auto 2.6 x10*3/uL (2.0-8.3); Neutrophils Percent Auto 47.3 % (45-73); Platelet Count 142 X10*3/uL (160-400); Red Blood Count 4.14 X10*6/uL (4.20-5.50); Red Cell Distribution Width 18.1 % (11.0-16.0); White Blood Count 5.5 X10*3/uL (4.8-10.8)
[2024-02-02 20:51] LABS: Alanine Aminotransferase 112 U/L (0-31); Albumin Level 3.7 g/dL (3.5-5.0); Alkaline Phosphatase 144 U/L (39-117); Anion Gap 14 (12-20); Aspartate Amino Transferase 140 U/L (5-31); Bilirubin Total 0.3 mg/dL (0.0-1.0); Blood Urea Nitrogen 11 mg/dL (9-16); C Reactive Protein 0.19 mg/dL (< or = 0.50); Calcium 9.3 mg/dL (8.4-10.2); Carbon Dioxide 24 mmol/L (22-29); Chloride 108 mmol/L (96-108); Creatinine Clr Calc Pharmacy 92.2; Estimated Glomerular Filt Rate > 60; Glucose Random 104 mg/dL (60-115); Potassium 4.3 mmol/L (3.3-5.1); Sodium 142 mmol/L (135-145); Total Protein 8.3 g/dL (6.5-8.0)
[2024-02-02 21:17] LABS: Erythrocyte Sedimentation Rate 38 MM/HR (0-20)
[2024-02-02 21:21] VITALS: BP 149/69; PULSE 53; RESP 19; TEMP 36.6; O2SAT 100
[2024-02-02 23:23] VITALS: BP 146/68; PULSE 56; RESP 18; TEMP 36.7; O2SAT 99
== END 2024-02-02 23:25 | disposition home or self-care (01) ==
PROVIDERS: Physician Assistant; Emergency Provider Student in an Organized Health Care Education/Training Program; PCP Physician Assistant
DX: M26.623 Arthralgia of bilateral temporomandibular joint (principal); F45.8 Other somatoform disorders; Z79.899 Other long term (current) drug therapy
CPT/HCPCS: 36415; 80053; 85025; 85652; 86140; 99282; 99283

== ENCOUNTER 2024-05-02 12:52 | Outpatient (AMB) | payer OTHER, SELFPAY ==
[2024-05-02 13:21] VITALS: BP 92/58; PULSE 54; BMI 27.8
--- NOTE | 2024-05-02 13:21 | MHC.OFFVIS ---
Vital Signs 05/02/24 13:21 Height 5 ft 3 in Weight 156 lb 11.979 oz BMI 27.8 BP 92/58 L Blood Pressure Location Rt brachial Position Sitting Pulse 54 Pulse Source Pulse Oximeter Intake Visit Reasons: Overlap syndrome/cm Intake Note: Patient last seen 11/04/23 presents today for follow up. PFT not done Water Use Inspector Required: No Accompanied by: Self / Same As Patient Allergies ciprofloxacin [From CIPRO] Allergy (Intermediate, Verified 05/02/24 13:22) RASH Medication List - Last Reconciled 05/02/24 by Ruth Helm MD acetaminophen ER (Tylenol Arthritis Pain) 650 mg PO Q12H 30 days HPI Comments Details: 58-year-old female with overlap syndrome returns for follow-up. She states that she has diffuse pain everywhere. Pain in knees, thighs, not doing well overall. She gets intermittent headaches. She missed her older adult social work specialist appointment in 11/2023 and Mr. Computer Forensic Examiner appointment 01/2024, she states that she does not have a ride Initial history: This is a 57-year-old female with a past medical history of limited scleroderma/seropositive RA/SLE overlap who presents as a new patient for me. She was last evaluated by Dr. Camacho in 2019. Patient stated that she started having Raynaud's about 10 years ago. She has history of digital tip ulcers. She was diagnosed with SLE/scleroderma 5 years ago. She was on hydroxychloroquine for some time. She stated that she stopped it due to eye pain. She states however that she has been having eye pain chronically. She also mentions that she was prescribed Xeljanz but never took it out of fear of side effects. She does not recall who prescribed it. Patient is complaining of pain in her hands, feet, as well as the rest of her body. She she is also having chest wall pain that is worse with lying flat. She stated that she had surgery in her sternoclavicular joints in 2016. She denies any history of DVT/PE. She denies GERD. Denies any history of recent digital tip ulcer [facility] Medical History Lupus Hx of Raynaud's syndrome Hx of bipolar disorder History of OCD (obsessive compulsive disorder) History of dyspnea Limited scleroderma LISSA positive Seropositive rheumatoid arthritis Surgical History Hx of endoscopy S/P debridement Hx of gastric bypass Family History Father Hx of cardiac pacemaker Mother History of heart attack Sister Lupus (systemic lupus erythematosus) Daughter Lupus (systemic lupus erythematosus) Social History Housing: Apartment Alcohol intake: never Patient Tobacco Use Status: Former Tobacco user Tobacco use type: Cigarette Cigarettes Per Day: 0 e-Cigarette/Vaping Use: Never Used service: No Current occupational status: unemployed and disabled Cognitive needs: No Hearing needs: No Vision needs: No Female Reproductive History Menstrual Total pregnancies: 4 Full term: 4 Review of Systems Const Reports fatigue, Reports headache(s) and Reports weakness Eyes Reports blurry vision and Reports eye pain ENT Reports headache(s) Card Reports dyspnea Resp Reports dyspnea Musc Reports arthralgias, Reports joint swelling and Reports stiffness Neuro Reports headache(s) and Reports weakness Endo Reports fatigue Physical Exam Vital Signs: Last Vital Signs Pulse 54 05/02/24 13:21 BP 92/58 L 05/02/24 13:21 BMI result Body Mass Index 27.8 Const General: cooperative, healthy appearing and comfortable Nutritional Appearance: overweight Orientation/consciousness: patient oriented x3 Limitations: no limitations HEENT Head: Yes normocephalic and Yes atraumatic Mouth: moist mucous membranes Resp Effort & Inspection: normal respiratory effort and able to speak in complete sentences Auscultation: clear to auscultation bilaterally Cardio Rate: regular rate Rhythm: regular rhythm GI Inspection: No distended Palpation (GI): Soft to palpation and nontender Skin Other: Multiple telangiectasias Neuro General: patient oriented x3 Extrem Other: Bilateral wrist tenderness without swelling , warmth or erythema Negative MCPs squeeze test bilaterally No swollen joints Numerous fibromyalgia tender points Negative MTP squeeze test bilaterally Right groin pain with flexion adduction and external rotation Normal nailfold capillaroscopy Assessment & Plan Assessment & Plan (1) Limited scleroderma: Comment: + telangiectasia, + Raynaud's, +++ centromere antibody +RF++CCP Code(s): M34.9 - Systemic sclerosis, unspecified Category: Medical Plan: This is a 57-year-old female with a past medical history of limited scleroderma overlapping with seropositive RA who presents for follow-up after completion of her diagnostic workup. Patient has no significantly swollen joints on exam. However she continues to have some arthralgias. Explained to patient that we can start her on hydroxychloroquine, patient was on hydroxychloroquine in the past. She states however that she has had chronic blurry vision and eye pain, she is worried about hydroxychloroquine. We referred the patient Ophthalmology, she missed her appointment 11/2023. Raynaud's has been well controlled. She has normal nailfold capillaroscopy and no digital ulcers. 2D echo was unremarkable, no signs of pulmonary arterial hypertension. Normally patient should get PFTs to rule out any signs suggestive of PAH/ILD however PFTs are not done currently in [facility], she will have to go to [facility], given the patient multiple appointments especially outside of [place], I do not believe she will be able to go to [facility] for her PFTs We will re-evaluate her next visit. Follow-up in 6 months (2) Transaminitis: Code(s): R74.01 - Elevation of levels of liver transaminase levels Category: Medical Plan: Chronic transaminitis with positive anti smooth muscle antibody. Referred patient to Gastroenterology but patient also missed her appointment Plan I spent 27 minutes reviewing patient's chart, evaluating patient, counseling patient and documenting in the chart Coding Level of Care Code Est Pt Level 4 (91752) Diagnoses Limited scleroderma M34.9 Transaminitis R74.01
== END 2024-05-02 14:36 | disposition home or self-care (01) ==
PROVIDERS: PCP Physician Assistant; Visit Provider Student in an Organized Health Care Education/Training Program
DX: M34.9 Systemic sclerosis, unspecified (principal); R74.01 Elevation of levels of liver transaminase levels
CPT/HCPCS: 99214

== ENCOUNTER → 2024-05-02 12:52 | Outpatient (BNVA) | payer OTHER, SELFPAY | PROVIDERS: PCP Physician Assistant; Visit Provider Student in an Organized Health Care Education/Training Program | DX: M34.9 Systemic sclerosis, unspecified (principal); R74.01 Elevation of levels of liver transaminase levels | CPT/HCPCS: 99212 ==

== ENCOUNTER 2024-05-28 11:30 | Outpatient (AMB) | payer OTHER, SELFPAY ==
[2024-05-28 12:55] VITALS: BP 166/78; PULSE 46; O2SAT 98; BMI 28.0
--- NOTE | 2024-05-28 12:55 | MHC.PC.OV ---
Vital Signs 05/28/24 12:55 05/28/24 13:36 Height 5 ft 3 in Weight 158 lb BMI 28.0 BP 166/78 H 130/70 Blood Pressure Location Lt brachial Position Sitting Pulse 46 L Pulse Source Pulse Oximeter Pulse Oximetry (%) 98 Oxygen Delivery Method Room Air Intake Visit Reasons: Annual Exam Police Clerk Required: No Accompanied by: Self / Same As Patient Allergies ciprofloxacin [From CIPRO] Allergy (Intermediate, Verified 05/28/24 13:13) RASH Medication List - Last Reconciled 05/28/24 by Ernst Richardson PA-C acetaminophen ER (Tylenol Arthritis Pain) 650 mg PO Q12H 30 days Tobacco use date assessed: 05/28/24 Dental Screening Dental Screen Date: 05/28/24 Did you have a dental visit in the last 12 months?: Yes Did you have a dental problem in the last 6 months where you did not have access to dental care?: No Was dental information given to patient?: Patient has dentist HPI Annual Exam HPI Details Patient is a 58-year-old female here today for in annual physical. PMHx of Anemia of chronic blood loss, Lupus, sero positive rheumatoid arthritis previously on Plaquenil, LISSA positive, limited scleroderma (CREST syndrome), Raynaud's syndrome, bipolar disorder, OCD and past surgical history of a gastric bypass. concern--> continues to bilateral eye pain. She does report having left temporal pain though she was evaluated at the ER in 02/01/2024 about. ESR was not elevated. Differential diagnosis includes trigeminal neuralgia an atypical migraine and. patient willing to try Cymbalta again for her pain. .. Autoimmune disease: she continues to have polyarthralgia. 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 Does has positive markers including double-stranded DNA. Has a history of multiple autoimmune diseases including Raynaud syndrome, scleroderma, lupus. Does report daughter recently diagnosed with lupus. Was on Plaquenil , meloxicam, Cymbalta in the past for her joint related pains. PLAN: she is willing to restart hydroxychloroquine and Cymbalta .. Bipolar disorder: Feels that she has been fairly stable, does have breakthrough mood swings at times though not severe. Now going to jain and feels her spirituality is helping her mental health. Vaccines: Refuses COVID vaccine, up-to-date with pneumonia vaccine, needs tetanus vaccine. Colon cancer screening: Has tried Cologuard though was not successful, not interested in further colon cancer screening at this time. Mammogram: Has an appointment for an upcoming mammogram. 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 [facility] Medical History Lupus Hx of Raynaud's syndrome Hx of bipolar disorder History of OCD (obsessive compulsive disorder) History of dyspnea Limited scleroderma LISSA positive Seropositive rheumatoid arthritis Surgical History Hx of endoscopy S/P debridement Hx of gastric bypass Family History Father Hx of cardiac pacemaker Mother History of heart attack Sister Lupus (systemic lupus erythematosus) Daughter Lupus (systemic lupus erythematosus) Social History Housing: Apartment Alcohol intake: never Patient Tobacco Use Status: Former Tobacco user Tobacco use type: Cigarette Cigarettes Per Day: 0 e-Cigarette/Vaping Use: Never Used service: No Current occupational status: unemployed and disabled Cognitive needs: No Hearing needs: No Vision needs: No Questionnaire PHQ-9 Over the last 2 weeks, how often have you been bothered by any of the following problems? 1. Little interest or pleasure in doing things: not at all 2. Feeling down, depressed, or hopeless: not at all 3. Trouble falling or staying asleep, or sleeping too much: not at all 4. Feeling tired or having little energy: not at all 5. Poor appetite or overeating: not at all 6. Feeling bad about yourself - or that you are a failure or have let yourself or your family down: not at all 7. Trouble concentrating on things, such as reading the newspaper or watching television: not at all 8. Moving or speaking so slowly that other people could have noticed. Or the opposite - being so fidgety or restless that you have been moving around a lot more than usual: not at all 9. Thoughts that you would be better off or of hurting yourself in some way: not at all Total score: 0 Depression Screening Interpretation: Negative Depression Screening Done: Yes 37607 - PHQ-9 Billing: Yes Source: Developed by Drs. Glenroy Escobar, Maggie Mckenzie, Carlos Jimenez and colleagues, with an educational viridiana from [employer]. Thrive Questionnaire Date Thrive assessed: 05/28/24 I am a: Patient What is your living situation today?: I have a place to live, but I am worried about losing it in the future (Pt went to [facility] for assistance.) Within the past 12 months, did the food you bought not last and you didn't have the money to get more?: Never true Within the past 12 months, did you worry whether your food would run out before you got money to buy more?: Never true Do you have trouble paying for medicines?: No Do you have trouble getting transportation to medical appointments?: No Do you have trouble paying your heating and electricity bill?: No Do you have trouble taking care of your child, family member or friend?: No Do you have trouble with day-to-day activities such as bathing, preparing meals, shopping, managing finances, etc.?: No Are you currently unemployed and looking for a job?: No Are you interested in more education?: No Please select the resources that you would like help with: None Currently or been in a relationship where the following occur: No concerns reported THRIVE Score: 1 AUDIT C Alcohol Use Questionnaire (AUDIT-C) 1. How often do you have a drink containing alcohol?: Never Total Score: 0 ZULAY-7 AMB Questionnaire ZULAY-7 Date ZULAY - 7 assessed: 05/28/24 Feeling nervous, anxious, or on edge: 1 = Several days Not being able to stop or control worryin = Several days Worrying too much about different things: 2 = More than half the days Trouble relaxin = Several days Being so restless that it is hard to sit still: 1 = Several days Becoming easily annoyed or irritable: 0 = Not at all Feeling afraid as if something awful might happen: 0 = Not at all Total ZULAY-7 score (0-4 normal; 5-9 mild; 10-14 moderate; 15-21 severe): 6 Source: Developed by Drs. Glenroy Escobar, Maggie Mckenzie, Carlos Jimenez and colleagues, with an educational viridiana from [employer] ZULAY-7 Assessment Billing ZULAY-7 Assessment Tool: ZULAY-7 Assessment 74352 Review of Systems Const Denies body aches, Denies chills, Denies excessive sweating, Denies fatigue, Denies fever(s) and Denies headache(s) Eyes Denies blurry vision ENT Denies dysphagia, Denies vertigo, Denies dizziness, Denies headache(s), Denies hearing loss and Denies tinnitus Card Denies chest pain, Denies chest pain with activity, Denies syncope, Denies irregular heart rhythm and Denies dyspnea Resp Denies chest congestion, Denies cough, Denies hemoptysis, Denies dyspnea and Denies wheezing GI Denies abdominal pain, Denies melena, Denies hematochezia, Denies coffee ground emesis, Denies dysphagia, Denies diarrhea, Denies nausea and Denies vomiting Denies urinary frequency, Denies dysuria, Denies urinary hesitancy and Denies urinary urgency Musc Denies arthralgias, Denies limited range of motion, Denies muscle cramps and Denies muscle weakness Skin/Breast Denies rash and Denies skin ulcer Neuro Denies Abnormal speech present, Denies confusion, Denies vertigo, Denies dizziness, Denies syncope, Denies headache(s), Denies memory loss and Denies seizure-like activity Psych Denies anxiety, Denies confusion, Denies depression, Denies memory loss, Denies panic attacks and Denies paranoia Endo Denies excessive sweating, Denies fatigue, Denies flushing, Denies polydipsia and Denies polyuria Aller/Immun Denies wheezing Physical exam (Primary Care) Vital Signs: Last Vital Signs Pulse 46 L 05/28/24 12:55 BP 130/70 05/28/24 13:36 Pulse Ox 98 05/28/24 12:55 Oxygen Delivery Method Room Air 05/28/24 12:55 BMI result Body Mass Index 28.0 Tobacco/Smoking Status: Tobacco use Status Tobacco use date assessed 05/28/24 05/28/24 13:05 Patient Tobacco Use Status Former Tobacco user 05/28/24 12:56 Tobacco use type Cigarette 05/28/24 12:56 e-Cigarette/Vaping Use Never Used 05/28/24 12:56 PHQ-9: PHQ-9 Score PHQ-9: Total score 0 05/28/24 13:14 Depression Screening Interpretation: Negative Thrive Assessment: Date of Thrive Assessment Date Thrive assessed 05/28/24 05/28/24 13:05 Currently or been in a relationship where the following occur: No concerns reported Const General: cooperative, comfortable, no acute distress, alert and awake; No confusion Orientation/consciousness: oriented to person, oriented to place, patient oriented x3 and No confusion HENMT Head: Yes normocephalic Ears: external ears normal and TM's normal bilaterally Face and sinus: No sinus tenderness Mouth: Normal oral and palatal mucosa present and tongue normal Teeth and gingiva: dentition normal and gingiva normal Throat: Yes posterior oropharynx normal, Yes tonsils normal and Yes uvula midline Eyes Conjunctivae: conjunctivae normal Sclerae: sclerae normal Pupils: Equal, round and reactive pupils present EOM: EOMs intact bilaterally Direct Ophthalmoscopy: No no photophobia Neck Neck: Yes no lymphadenopathy, No tender and Yes no JVD Thyroid: Thyroid normal Carotids: no bruits Chest Chest palpation & inspection: no tenderness Resp Effort & Inspection: normal respiratory effort, no audible wheezes, not labored and no stridor Auscultation: no crackles, no rales, no rhonchi and no wheezes Cardio Jugular venous distension: no JVD Rate: regular rate, not bradycardic and not tachycardic Rhythm: regular rhythm Bruits: no carotid bruits Peripheral pulses: Peripheral pulses 2+ throughout GI Inspection: Yes normal to inspection, No abdominal wall ecchymosis and No visible herniation Palpation (GI): Soft to palpation, nontender, no guarding, not rigid and No hepatosplenomegaly present Auscultation: normoactive bowel sounds General: Yes no CVA tenderness Back/Spine/Pelvis Back: no CVA tenderness and No back tenderness Cervical Spine: cervical ROM normal Thoracic/Lumbar Spine: thoracic and lumbar spine normal to inspection, straight leg raise negative bilaterally, No thoraco-lumbar ROM limited and No lumbar spinal tenderness Skin Lesions: no lesions Rashes: no rashes Wounds: no wounds Neuro General: oriented to person, oriented to place, patient oriented x3, CN's II-XI intact bilaterally and No confusion Cranial nerves: Yes Equal, round and reactive pupils present and Yes Normal accommodation reflex present Cognition (Neuro): normal cognition Speech: No Abnormal speech present Gait exam (Neuro): Normal gait present Motor exam (neuro): 5/5 motor strength present throughout Extrem Right upper extremity: full ROM; no cyanosis Left upper extremity: full ROM; no cyanosis Right lower extremity: no edema Left lower extremity: no edema Psych Appearance: grossly normal Mental Status: mental status grossly normal Affect: normal affect Attitude: cooperative Thought process: Normal thought process present Assessment and Plan Assessment & Plan (1) Annual physical exam: Code(s): Z00.00 - Encounter for general adult medical examination without abnormal findings (2) Trigeminal nerve disorder: Code(s): G50.9 - Disorder of trigeminal nerve, unspecified Plan: patient has left temporal pain. Has been evaluated for temporarily are is though did not have elevated ESR. Symptoms will concerning for trigeminal nerve issue thus will restart Cymbalta. (3) Bipolar 1 disorder with moderate otis: Code(s): F31.12 - Bipolar disorder, current episode manic without psychotic features, moderate Plan: Patient currently not on any mental health medications. She feels her bipolar disorder is under control as she has been more close withHer spirituality. (4) Lupus: Code(s): M32.9 - Systemic lupus erythematosus, unspecified Plan: Does have double-stranded DNA positive. has followed up of rheumatology and was advised to see life skills educator about her eye issues. Willing to be referred to Ophthalmology (5) Limited scleroderma: Comment: + telangiectasia, + Raynaud's, +++ centromere antibody +RF++CCP Code(s): M34.9 - Systemic sclerosis, unspecified (6) Elevated liver enzymes: Code(s): R74.8 - Abnormal levels of other serum enzymes Plan: has markedly elevated liver enzymes. She is not interested in abdominal ultrasound or gastroenterology evaluation at this time. No notable jaundice on physical exam today. Will recheck liver enzymes on next labs. Orders: Orders Complete Blood Count no Diff Today D64.9 - Anemia, unspecified Comprehensive [place]. Panel Fast Today R74.01 - Elevation of levels of liver transaminase levels Referrals Ophthalmology Referral H53.8 - Other visual disturbances Medications: New duloxetine (Cymbalta) 30 mg PO DAILY 90 caps 1RF G50.9 - Disorder of trigeminal nerve, unspecified hydroxychloroquine 100 mg PO DAILY 30 days 30 tabs 2RF G50.9 - Disorder of trigeminal nerve, unspecified, M32.9 - Systemic lupus erythematosus, unspecified Coding Level of Care Code Est Pt Prev Care 40-64y([id number]) Diagnoses Annual physical exam Z00.00 Trigeminal nerve disorder G50.9 Bipolar 1 disorder with moderate otis F31.12 Lupus M32.9 Limited scleroderma M34.9 Elevated liver enzymes R74.8 Additional Codes ZULAY-7 Assessment Billing - ZULAY-7 Assessment Tool: ZULAY-7 Assessment [id number] ([id number])
[2024-05-28 13:36] VITALS: BP 130/70
== END 2024-05-28 13:44 | disposition home or self-care (01) ==
PROVIDERS: PCP Physician Assistant; Visit Provider Physician Assistant
DX: Z00.00 Encounter for general adult medical examination without abnormal findings (principal); F31.12 Bipolar disorder, current episode manic without psychotic features, moderate; M32.9 Systemic lupus erythematosus, unspecified; M34.9 Systemic sclerosis, unspecified; G50.9 Disorder of trigeminal nerve, unspecified; R74.8 Abnormal levels of other serum enzymes
CPT/HCPCS: 99396

== ENCOUNTER 2024-09-19 21:17 | Emergency (ER) | payer OTHER, SELFPAY ==
[2024-09-19 21:22] VITALS: BP 142/60; PULSE 61; RESP 18; TEMP 36.8; O2SAT 100; BMI 26.6
[2024-09-20 02:22] VITALS: BP 131/57; PULSE 59; RESP 16; TEMP 36.9; O2SAT 98
[2024-09-20 02:56] VITALS: BP 150/84; PULSE 70; RESP 18; TEMP 37.2; O2SAT 98
--- NOTE | 2024-09-20 02:59 | PC.NURSE ---
Pt brought to [facility] [place] [facility] for treatment assumed care of pt at this time. A&Ox3 skin pwd respirations even unlabored, VSS. Awaiting primary provider eval, aware of plan of care.
--- NOTE | 2024-09-20 04:26 | PC.NURSE ---
Provider to bedside for primary eval, no change in physical assessment.
--- NOTE | 2024-09-20 04:37 | ED_ITS ---
HPI - Animal Bite General Chief Complaint: Animal Bite Stated Complaint: Lt arm cat bite Time Seen by Provider: 09/20/24 04:02 Source: patient Mode of arrival: ambulatory Limitations: no limitations History of Present Illness ED Provider: Dr. Carmel Parra HPI narrative: Patient comes to the emergency room complaining of a cat bite to the left hand. Patient states that she would bitten by her own cat. Seems that the cat and a dog were having a disagreement. The cat's Sina got caught in a chair, the CT started panicking. The patient tried helping the CAt to release the palm, the cat bit the patient. According to the patient, her animals are up-to-date with their immunizations. Patient is not up-to-date with her Tdap. Patient complaining of left hand pain. Related Data Previous Rx's ?Medication ?Instructions ?Recorded acetaminophen 650 mg 650 mg PO Q12H 30 days #60 tabs 09/28/23 tablet,extended release (Tylenol Arthritis Pain) duloxetine 30 mg capsule,delayed 30 mg PO DAILY #90 caps 05/28/24 release (Cymbalta) hydroxychloroquine 100 mg tablet 100 mg PO DAILY 30 days #30 tabs 05/28/24 amoxicillin 500 mg-potassium 1 tab PO TID 7 days #21 tabs 09/20/24 clavulanate 125 mg tablet (Augmentin) tramadol 50 mg tablet 50 mg PO Q8H PRN pain #7 tabs 09/20/24 Allergies Allergy/AdvReac Type Severity Reaction Status Date / Time ciprofloxacin [From CIPRO] Allergy Intermediate RASH Verified 09/19/24 21:23 Review of Systems Review of Systems: Constitutional : No Weight loss, No Fever, No Chills, No Night Sweats, No Fatigue, No Malaise ENT/Mouth : No Hearing loss, No Ear Pain, No Nasal Congestion, No Sinus Pain, No Hoarseness, No sore throat, No Rhinorrhea, No Swallowing Difficulty Eyes: No Eye Pain, No Swelling, No Redness, No Foreign Body, No Discharge, No Vision Changes Cardiovascular : No Chest Pain, No SOB, No Dyspnea on Exertion, No Orthopnea, No Edema, No Palpitations Respiratory : No Cough, No Sputum, No Wheezing, No Smoke Exposure, No Dyspnea Gastrointestinal : No Nausea, No Vomiting, No Diarrhea, No Constipation, No abdominal Pain, No Hematochezia, No Melena Genitourinary : no irregular bleeding, No Dysuria, No Urinary Frequency, No Hematuria, No Urinary Incontinence, No Urgency, No Flank Pain, No Urinary Flow Changes, No Hesitancy Musculoskeletal : No joint pain, No Myalgias, No Joint Swelling Skin : Complaining of puncture wounds to the left hand Neuro : No Weakness, No Numbness, No Paresthesias, No Loss of Consciousness, No Dizziness, No Headache Psych : No Anxiety/Panic, No Depression, No SI/HI/AH/VH, No Social Issues, Heme/Lymph: No Bruising, No Bleeding,No Lymphadenopathy Endocrine : No Polyuria, No Polydipsia, No Temperature Intolerance PMFSH Past Medical History Medical History Lupus Hx of Raynaud's syndrome Hx of bipolar disorder History of OCD (obsessive compulsive disorder) History of dyspnea Limited scleroderma LISSA positive Seropositive rheumatoid arthritis Surgical History Hx of endoscopy S/P debridement Hx of gastric bypass Family History Family History Father Hx of cardiac pacemaker Mother History of heart attack Sister Lupus (systemic lupus erythematosus) Daughter Lupus (systemic lupus erythematosus) Social History Social History Housing: Apartment Alcohol intake: never Patient Tobacco Use Status: Former Tobacco user Tobacco use type: Cigarette Cigarettes Per Day: 0 e-Cigarette/Vaping Use: Never Used Use of substances other than those prescribed or required for medical reasons: No Advance Directives: No Advance Directives Information Provided: Yes Do you have a plan to hurt others: No Plan service: No Current occupational status: unemployed and disabled Cognitive needs: No Hearing needs: No Vision needs: No Physical Exam ED Vital Signs: Vital Signs - 24 hr 09/19/24 21:22 09/20/24 02:22 09/20/24 02:56 Temperature 98.2 F 98.5 F 99.0 F Pulse Rate 61 59 70 Respiratory Rate 18 16 18 Blood Pressure 142/60 H 131/57 L 150/84 H Pulse Oximetry 100 98 98 Oxygen Delivery Method Room Air Room Air Room Air BMI result Body Mass Index 26.6 Const Other: Appearance: Alert. Oriented X3. No acute distress. Eyes: Pupils equal, round and reactive to light. ENT: Pharynx normal. Neck: Normal inspection. Neck supple. No lymph nodes noted. No crepitus CVS: Normal heart rate and rhythm. Pulses normal. Normal S1 and S2 Respiratory: No respiratory distress. Breath sounds normal. No Wheezing. No rales Abdomen: Soft and nontender. No rigidity. No distention. Skin: Skin warm and dry. Normal skin color. Normal skin turgor. Extremities: No lower extremity edema. No Lacerations. No Rash. Patient has swelling to the dorsum of the hand. Patient is able to oppose the thumb, flex and extend all fingers with pain but is able to do so. No erythema beyond the wrist. Neuro: Oriented X 3. No motor deficit. No sensory deficit. Moving all extremities. No slurred speech. CN 2 through 12 grossly intact Psych: calm, cooperative, normal affect Medical Decision Making Medical Decision Making MDM Narrative: Patient was given Augmentin, Tdap booster and IM Toradol. -I discussed with the patient that if she notices that the hand is getting more swollen, erythema is expanding, worsening pain or any abnormalities, patient is to return to the emergency room for IV antibiotics and to plan to be admitted. At this time, there are no signs of obvious infection or sepsis. Discharge Plan Discharge Clinical Impression: Cat bite Patient Disposition: Home, Self-Care Instructions: Animal Bite (ED) Additional Instructions: Please follow-up with your primary care physician tomorrow. If you have any worsening or new symptoms, please return to the emergency room or call 911 Prescriptions: New amoxicillin-pot clavulanate [Augmentin] 500-125 mg tablet 1 tab PO TID 7 Days Qty: 21 0RF tramadol 50 mg tablet 50 mg PO Q8H PRN (Reason: pain) Qty: 7 0RF No Action acetaminophen [Tylenol Arthritis Pain] 650 mg tablet extended release 650 mg PO Q12H 30 Days Qty: 60 3RF hydroxychloroquine 100 mg tablet 100 mg PO DAILY 30 Days Qty: 30 2RF duloxetine [Cymbalta] 30 mg capsule,delayed release(DR/EC) 30 mg PO DAILY Qty: 90 1RF Print Language: [place]
[2024-09-20] MEDS: Diphth,Pertus(ACell),Tet Adult 0.5 ML SYRINGE IM (04:49)
[2024-09-20] MEDS: Ketorolac Tromethamine 60 MG/2 ML VIAL IM (04:49)
[2024-09-20] MEDS: Amoxicillin/Potassium Clav 875 MG TABLET PO (04:49)
[2024-09-20 04:52] VITALS: BP 150/84; PULSE 70; RESP 18; TEMP 37.2; O2SAT 98
== END 2024-09-20 04:53 | disposition home or self-care (01) ==
PROVIDERS: Emergency Provider Emergency Medicine; PCP Physician Assistant
DX: S61.452A Open bite of left hand, initial encounter (principal); W55.01XA Bitten by cat, initial encounter; Y93.89 Activity, other specified; Y92.89 Other specified places as the place of occurrence of the external cause; Y99.8 Other external cause status; Z87.891 Personal history of nicotine dependence; Z79.899 Other long term (current) drug therapy; Z23 Encounter for immunization
CPT/HCPCS: 90471; 90715; 96372; 99284; J1885

== ENCOUNTER 2025-01-29 13:53 | Outpatient (AMB) | payer OTHER, SELFPAY ==
--- NOTE | 2025-01-29 14:08 | MHC.PC.OV ---
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 Required: No Accompanied by: Self / Same As Patient Allergies ciprofloxacin [From CIPRO] Allergy (Intermediate, Verified 01/29/25 14:18) RASH Medication List - Last Reconciled 01/29/25 by Ernst Richardson PA-C duloxetine (Cymbalta) 30 mg PO DAILY hydroxychloroquine 100 mg PO DAILY 30 days tramadol 50 mg PO Q8H PRN Tobacco use date assessed: 01/29/25 Dental Screening Dental Screen Date: 01/29/25 Did you have a dental visit in the last 12 months?: No Did you have a dental problem in the last 6 months where you did not have access to dental care?: Yes Was dental information given to patient?: Patient has dentist HPI f/u Pain (autoimmune) HPI Details Patient is a 59 year female here today for follow-up visit PMHx of Anemia of chronic blood loss, Lupus, sero positive rheumatoid arthritis previously on Plaquenil, LISSA positive, limited scleroderma (CREST syndrome), Raynaud's syndrome, bipolar disorder, OCD and past surgical history of a gastric bypass. .. Autoimmune disease LUPUS/ limited scleroderma: She has used to see a cement boat and barge loader here in [place]. she continues to have polyarthralgia. she takes ibuprofen and Tylenol [id number] though without much relief of her pain she is interested in reestablishing care with Rheumatology. . Does has positive markers including double-stranded DNA. Has a history of multiple autoimmune diseases including Raynaud syndrome, scleroderma, lupus. Does report daughter recently diagnosed with lupus. Was on Plaquenil , meloxicam, Cymbalta in the past for her joint related pains. PLAN: Will continue hydroxychloroquine and Cymbalta- will try to set patient up with toll service observer for eye exam to do long-term use of hydroxychloroquine .. Bipolar disorder: Feels that she has been fairly stable, does have breakthrough mood swings at times though not severe. Now going to mosque and feels her spirituality is helping her mental health. [facility] Medical History Lupus Hx of Raynaud's syndrome Hx of bipolar disorder History of OCD (obsessive compulsive disorder) History of dyspnea Limited scleroderma LISSA positive Seropositive rheumatoid arthritis Surgical History Hx of endoscopy S/P debridement Hx of gastric bypass Family History Father Hx of cardiac pacemaker Mother History of heart attack Sister Lupus (systemic lupus erythematosus) Daughter Lupus (systemic lupus erythematosus) Social History Housing: Apartment Alcohol intake: never Patient Tobacco Use Status: Former Tobacco user Tobacco use type: Cigarette Cigarettes Per Day: 0 e-Cigarette/Vaping Use: Never Used service: No Current occupational status: unemployed and disabled Cognitive needs: No Hearing needs: No Vision needs: No Questionnaire PHQ-9 Over the last 2 weeks, how often have you been bothered by any of the following problems? 1. Little interest or pleasure in doing things: not at all 2. Feeling down, depressed, or hopeless: not at all 3. Trouble falling or staying asleep, or sleeping too much: not at all 4. Feeling tired or having little energy: not at all 5. Poor appetite or overeating: not at all 6. Feeling bad about yourself - or that you are a failure or have let yourself or your family down: not at all 7. Trouble concentrating on things, such as reading the newspaper or watching television: not at all 8. Moving or speaking so slowly that other people could have noticed. Or the opposite - being so fidgety or restless that you have been moving around a lot more than usual: not at all 9. Thoughts that you would be better off or of hurting yourself in some way: not at all Total score: 0 Depression Screening Interpretation: Negative Depression Screening Done: Yes 40584 - PHQ-9 Billing: Yes Source: Developed by Drs. Glenroy Escobar, Maggie Mckenzie, Carlos Jimenez and colleagues, with an educational viridiana from [employer]. Thrive Questionnaire Date Thrive assessed: 01/29/25 I am a: Patient What is your living situation today?: I have a steady place to live Within the past 12 months, did the food you bought not last and you didn't have the money to get more?: Never true Within the past 12 months, did you worry whether your food would run out before you got money to buy more?: Never true Do you have trouble paying for medicines?: No Do you have trouble getting transportation to medical appointments?: No Do you have trouble paying your heating and electricity bill?: No Do you have trouble taking care of your child, family member or friend?: No Do you have trouble with day-to-day activities such as bathing, preparing meals, shopping, managing finances, etc.?: No Are you currently unemployed and looking for a job?: No Are you interested in more education?: No Please select the resources that you would like help with: None Currently or been in a relationship where the following occur: No concerns reported THRIVE Score: 0 AUDIT C Alcohol Use Questionnaire (AUDIT-C) 1. How often do you have a drink containing alcohol?: Never 3. How often do you have six or more drinks on one occasion?: Never Total Score: 0 ZULAY-7 AMB Questionnaire ZULAY-7 Date ZULAY - 7 assessed: 01/29/25 Feeling nervous, anxious, or on edge: 0 = Not at all Not being able to stop or control worryin = Not at all Worrying too much about different things: 0 = Not at all Trouble relaxin = Not at all Being so restless that it is hard to sit still: 0 = Not at all Becoming easily annoyed or irritable: 0 = Not at all Feeling afraid as if something awful might happen: 0 = Not at all Total ZULAY-7 score (0-4 normal; 5-9 mild; 10-14 moderate; 15-21 severe): 0 Source: Developed by Drs. Glenroy Escobra, Maggie Mckenzie, Carlos Jimenez and colleagues, with an educational viridiana from [employer]. ZULAY-7 Assessment Billing ZULAY-7 Assessment Tool: ZULAY-7 Assessment 38661 Review of Systems Const Denies headache(s) Eyes Denies loss of vision ENT Denies vertigo, Denies dizziness, Denies headache(s) and Denies sore throat Card Denies chest pain, Denies leg edema and Denies lightheadedness Resp Denies cough, Denies hemoptysis and Denies wheezing GI Denies abdominal pain, Denies melena, Denies constipation, Denies diarrhea and Denies vomiting Denies urinary frequency, Denies dysuria and Denies urinary urgency Musc Reports back pain, Reports arthralgias, Reports joint swelling, Reports muscle cramps, Denies numbness, Reports stiffness and Denies tingling Neuro Denies Abnormal speech present, Denies behavioral changes, Denies vertigo, Denies dizziness, Denies headache(s), Denies loss of vision, Denies memory loss, Denies numbness and Denies tingling Psych Denies anxiety, Denies behavioral changes, Denies depression, Denies memory loss and Denies panic attacks Bossman/Lymph Denies easy bleeding and Denies easy bruising Aller/Immun Denies wheezing Physical exam (Primary Care) Vital Signs: Last Vital Signs Temp 97.1 F 01/29/25 14:09 Pulse 64 01/29/25 14:09 BP 136/84 01/29/25 14:09 Oxygen Delivery Method Room Air 01/29/25 14:09 BMI result Body Mass Index 28.4 Tobacco/Smoking Status: Tobacco use Status Tobacco use date assessed 01/29/25 01/29/25 14:14 Patient Tobacco Use Status Former Tobacco user 01/29/25 14:14 Tobacco use type Cigarette 01/29/25 14:14 e-Cigarette/Vaping Use Never Used 01/29/25 14:14 PHQ-9: PHQ-9 Score PHQ-9: Total score 0 01/29/25 14:17 Depression Screening Interpretation: Negative Thrive Assessment: Date of Thrive Assessment Date Thrive assessed 01/29/25 01/29/25 14:14 Currently or been in a relationship where the following occur: No concerns reported Const General: healthy appearing, no acute distress, alert and awake Nutritional Appearance: well nourished Orientation/consciousness: oriented to person, oriented to place and oriented to time HENMT Ears: TM's normal bilaterally General nose exam: Normal nasal mucous membranes and turbinates present Eyes Conjunctivae: conjunctivae normal Sclerae: sclerae normal Pupils: Equal, round and reactive pupils present Neck Neck: Yes no lymphadenopathy and Yes no JVD Thyroid: Thyroid normal Carotids: no bruits Resp Effort & Inspection: normal respiratory effort and not tachypneic Auscultation: no crackles, no rales, no rhonchi and no wheezes Cardio Rate: regular rate Rhythm: regular rhythm Heart sounds: no murmurs and normal S1 and S2 GI Palpation (GI): Soft to palpation, nontender, no hepatomegaly and no splenomegaly Auscultation: normal bowel sounds Skin General skin exam: no rashes or lesions noted and dry skin Neuro General: oriented to person, oriented to place and oriented to time Cranial nerves: Yes Equal, round and reactive pupils present Speech: No Abnormal speech present Gait exam (Neuro): Normal gait present Motor exam (neuro): no tremor noted Extrem Right upper extremity: full ROM Left upper extremity: full ROM Right lower extremity: full ROM; no edema Left lower extremity: full ROM; no edema Psych Mental Status: mental status grossly normal Speech and movement: Normal speech and movement present Affect: normal affect Attitude: cooperative Thought process: Normal thought process present Coding Level of Care Code Est Pt Level 4 (96081) Diagnoses Seropositive rheumatoid arthritis M05.9 Limited scleroderma M34.9 Bipolar 1 disorder with moderate otis F31.12 Lupus M32.9 Hair thinning L65.9 Additional Codes ZULAY-7 Assessment Billing - ZULAY-7 Assessment Tool: ZULAY-7 Assessment 16326 ([id number]) PHQ-9 - 04621 - PHQ-9 Billing: Yes ([id number]) Assessment & Plan Assessment & Plan (1) Seropositive rheumatoid arthritis: Code(s): M05.9 - Rheumatoid arthritis with rheumatoid factor, unspecified Category: Medical Plan: As per HPI patient has a history of rheumatoid arthritis, lupus and limited scleroderma. She continues on Plaquenil on a daily basis. She lost follow-up with her cement boat and barge loader in his willing to reestablish care with Rheumatology due to her multiple autoimmune diseases. (2) Limited scleroderma: Comment: + telangiectasia, + Raynaud's, +++ centromere antibody +RF++CCP Code(s): M34.9 - Systemic sclerosis, unspecified Category: Medical Plan: In the setting of patient having scleroderma will send for barium swallow to rule out any esophageal strictures or achalasia as patient has been having epigastric and abdominal pains. Does have a history bariatric surgery (3) Bipolar 1 disorder with moderate otis: Code(s): F31.12 - Bipolar disorder, current episode manic without psychotic features, moderate Category: Medical Plan: Patient has a history of bipolar 1 disorder and continues on Cymbalta which has been helpful for her mental health and her pain. She is not interested in psychiatry at this time and will consider it in the future. (4) Lupus: Code(s): M32.9 - Systemic lupus erythematosus, unspecified Category: Medical Plan: As above (5) Hair thinning: Code(s): L65.9 - Nonscarring hair loss, unspecified Category: Medical Plan: Patient has been experiencing hair thinning and we did discuss supplements she can try leg vitamin a and E. Will supply patient with 2% minoxidil topical treatment to help thicken here. Will consider Dermatology evaluation. Orders: Orders Comprehensive [place]. Panel Fast 01/29/25 Z13.1 - Encounter for screening for diabetes mellitus Complete Blood Count no Diff 01/29/25 Z13.1 - Encounter for screening for diabetes mellitus Vitamin D 25-OH Total 01/29/25 D64.9 - Anemia, unspecified TSH reflex Free T4 01/29/25 L65.9 - Nonscarring hair loss, unspecified IRON PROFILE 01/29/25 D50.9 - Iron deficiency anemia, unspecified, D64.9 - Anemia, unspecified Vitamin B12 and Folate 01/29/25 D64.9 - Anemia, unspecified, E53.8 - Deficiency of other specified B group vitamins Referrals Ophthalmology Referral Z79.899 - Other meterman (current) drug therapy Rheumatology Referral M32.9 - Systemic lupus erythematosus, unspecified Medications: New minoxidil 2% 1 mL topical BID 30 days 120 mL 1RF L65.9 - Nonscarring hair loss, unspecified Changed From hydroxychloroquine 100 mg PO DAILY 30 days 30 tabs 2RF G50.9 - Disorder of trigeminal nerve, unspecified, M32.9 - Systemic lupus erythematosus, unspecified To hydroxychloroquine 100 mg PO DAILY 90 days 90 tabs 2RF G50.9 - Disorder of trigeminal nerve, unspecified, M32.9 - Systemic lupus erythematosus, unspecified Refilled duloxetine (Cymbalta) 30 mg PO DAILY 90 caps 1RF G50.9 - Disorder of trigeminal nerve, unspecified
[2025-01-29 14:09] VITALS: BP 136/84; PULSE 64; TEMP 36.2; BMI 28.4
== END 2025-01-29 14:38 | disposition home or self-care (01) ==
LOC: HO.HMCH 13:54
PROVIDERS: PCP Physician Assistant; Visit Provider Physician Assistant
DX: M05.9 Rheumatoid arthritis with rheumatoid factor, unspecified (principal); M34.9 Systemic sclerosis, unspecified; F31.12 Bipolar disorder, current episode manic without psychotic features, moderate; M32.9 Systemic lupus erythematosus, unspecified; L65.9 Nonscarring hair loss, unspecified

== ENCOUNTER → 2025-01-29 13:53 | Outpatient (BNVA) | payer OTHER, SELFPAY | PROVIDERS: PCP Physician Assistant; Visit Provider Physician Assistant | DX: M05.9 Rheumatoid arthritis with rheumatoid factor, unspecified (principal); M34.9 Systemic sclerosis, unspecified; F31.12 Bipolar disorder, current episode manic without psychotic features, moderate; M32.9 Systemic lupus erythematosus, unspecified; L65.9 Nonscarring hair loss, unspecified | CPT/HCPCS: 96127; 99212 ==